=== PATIENT | female | born 1950 | race Caucasian/White ===

== ENCOUNTER 2018-02-22 03:28 | Observation (INO) ==
[2018-02-22] MEDS ORDERED: Ipratropium/Albuterol Neb 3 ML IH ONE (03:45)
[2018-02-22] MEDS ORDERED: methylPREDNISolone 125 MG/2 ML VIAL IVP ONE (03:45)
--- NOTE | 2018-02-22 03:50 | Emergency Department Note ---
Disposition Clinical Impression: Acute exacerbation of chronic obstructive airways disease Community acquired pneumonia Qualifiers: Laterality: left Lung location: unspecified part of lung Qualified Code(s): J18.9 - Pneumonia, unspecified organism Disposition: Admitted As Inpatient Condition: Good Referrals: Jani Pelletier DO [Primary Care Provider] - Forms: ED Satisfaction Letter Time of Disposition: 04:33 SOB HPI - General Chief Complaint: ED Shortness of Breath/Dyspnea Stated Complaint: Breathing problem Time Seen by Provider: 02/22/18 03:35 Source: patient, EMS Mode of arrival: EMS Limitations: no limitations Nursing Notes Reviewed: Yes Vital Signs Reviewed: Yes - History of Present Illness 67-year-old female history of COPD on 3 to 4 L home oxygen supplementation presents to the emergency department via EMS for difficulty breathing. She states over the past 24 hours she has progressively been more short of breath having a hard time breathing. She states around 830 Friday morning she began experiencing a sharp pain in the mid back. Scribes as a stabbing pain. She denies any chest pain. She is complaining of having a hard time breathing because of the discomfort. This is been ongoing throughout the day she is place ice packs as well as taken her [place] and Flexeril to help with it with minimal relief. With the difficulty breathing she had 3 breathing treatments in the morning and 3 breathing treatments tonight prior to coming here. She received additional breathing treatment by EMS which she reports with improvement. She denies any fevers. She has a nonproductive cough. She continues to smoke. Diagnosed with COPD 2009. She does not see a program instructor. She denies any abdominal pain, nausea or vomiting. She denies any urinary incontinence. Denies any leg swelling. She states she has not been on any antibiotics her steroids recently. Pt Subjective Complaint: shortness of breath - Related Data Home Medications Medication Instructions Recorded Confirmed Albuterol Sulfate [Ventolin Hfa] 2 puff IH Q4H PRN 12/18/17 12/18/17 Amitriptyline [Elavil] 10 mg PO HS 12/18/17 12/18/17 Aspirin [Lo-Dose Aspirin EC] 81 mg PO DAILY 12/18/17 12/18/17 Cyclobenzaprine [Flexeril] 10 mg PO TID 12/18/17 12/18/17 Fluticasone Propionate Nasal 2 spr NS DAILY 12/18/17 12/18/17 [Flonase] Fluticasone/Salmeterol [Advair 1 puff IH BID 12/18/17 12/18/17 500-50 Diskus] HYDROcodone/Acet 5/325 mg [[place] 1 tab PO Q6H PRN 12/18/17 12/18/17 5-325 mg] Tiotropium [Spiriva] 1 puff IH DAILY 12/18/17 12/18/17 Previous Rx's Medication Instructions Recorded Albuterol Sulfate [Albuterol 2 puff IH Q4HR PRN #1 hfa.aer.ad 12/18/17 Inhaler] Doxycycline 100 mg PO BID 5 Days #10 capsule 12/18/17 predniSONE [PredniSONE] 40 mg PO DAILY 4 Days #8 tablet 12/18/17 Allergies Allergy/AdvReac Type Severity Reaction Status Date / Time No Known Allergies Allergy Verified 12/18/17 12:10 All systems ED: reviewed and negative except as stated. Review of Systems: As Per HPI Constitutional: Denies: fever, chills ENT ED: Denies: congestion Cardiovascular: Denies: chest pain Respiratory: Reports: cough, dyspnea, wheezes Gastrointestinal: Denies: abdominal pain, nausea, vomiting Genitourinary: Denies: dysuria Musculoskeletal: Denies: back pain, neck pain Integumentary: Denies: rash Neurological: Denies: headache Past Medical History - Past Medical History Attestation: Yes The following information was validated with the patient. Source: patient Medical history: Reports: COPD Psychiatric history: Reports: no psych history - Social History Smoking Status: Current every day smoker Smokeless Tobacco Status: No Alcohol use: Reports: none Drug use: Reports: none Physical Exam - General Limitations: no limitations General appearance: alert, in no apparent distress, in distress (Mild respiratory) - Head Head exam: atraumatic, normocephalic, normal inspection - Eye Eye exam: Present: normal appearance, PERRL, EOMI - ENT ENT exam: normal exam, normal oropharynx, mucous membranes moist - Neck Neck exam: Present: normal inspection, full ROM, trachea midline - Chest Chest inspection: Present: normal inspection, symmetric chest wall rise - Respiratory Respiratory exam: Present: respiratory distress (Mild), wheezes, accessory muscle use, prolonged expiratory phase, other (Tight aeration) - Expanded Respiratory Exam Location: wheezes: Right, Left - Cardiovascular Cardiovascular exam: Present: normal rhythm, tachycardia, normal heart sounds - Abdominal Exam Abdominal exam: Present: soft, Non-Tender, normal bowel sounds. Absent: tenderness, distention, guarding, rebound, rigidity - Extremities Exam Extremities exam: Present: normal inspection, full ROM, normal capillary refill. Absent: tenderness, pedal edema, calf tenderness - Back Exam Back exam: Present: normal inspection, full ROM, paraspinal tenderness (mid thoracic). Absent: tenderness - Neurological Exam Neurological exam: Present: alert, oriented X3 - Psychiatric Psychiatric exam: Present: normal affect, normal mood - Skin Skin exam: Present: warm, dry, intact, normal color. Absent: rash, cyanosis, diaphoresis Course Course Narrative: Patient appears in some mild respiratory distress. She has a prolonged expiratory phase with diffuse wheezing and tight aeration. She is currently on her home oxygen supplementation of 3 L. She denies any chest pain by has some mild mid back pain worse with expiration. She denies history of blood clots. She is tachycardic likely due to her breathing treatments. She is afebrile. Will treat her for COPD exacerbation with breathing treatments and steroids. Check EKG and basic labs. Chest x-ray. Patients in agreement this plan. Will reevaluate. - Reevaluation(s) Reevaluation #1: On reevaluation patient continues to have some increase worker breathing. She continues her appetite aeration with diffuse wheezing. Review for labs leukocytosis of 17. Her CO2 is elevated at 40. Creatinine is fine. Chest x- ray shows concern for left upper lobe atelectasis versus pneumonia. Given her coughing increase difficulty in breathing will treat her for community acquired pneumonia with ceftriaxone and azithromycin on top for COPD exacerbation. Will add a lactate as well as blood cultures prior to administration of antibiotics. Will also trial a BiPAP to help with her breathing. Patients in agreement with admission for COPD exacerbation and community acquired pneumonia. Time: 04:34 Reevaluation #2: Patient is tolerating BiPAP. Her work of breathing is improving. Would recommend continuing the BiPAP. Current settings 14/7. Pulling good tidal volumes. She continues to mentate well she is conversant and talking over the BiPAP. Recommendation for BiPAP to assist with work of breathing. Time: 04:45 - Consultations Consultation #1: Spoke with on-call hospitalist maxine Ruiz to admit for COPD exac and CAP. Request to infuse magnesium to assist with breathing. 2g IV ordered. Time: 05:09 Vital Signs Temperature 97.1 F L 02/22/18 03:30 Pulse Rate 114 02/22/18 03:30 Respiratory Rate 22 02/22/18 03:30 Blood Pressure 113/87 02/22/18 03:30 O2 Sat by Pulse Oximetry 94 02/22/18 03:30 Temperature 97.1 F L 02/22/18 03:30 Pulse Rate 107 02/22/18 04:54 Respiratory Rate 24 02/22/18 04:54 Blood Pressure 113/61 02/22/18 04:54 O2 Sat by Pulse Oximetry 98 02/22/18 04:54 Oxygen Delivery Oxygen Delivery Bipap Shortness of Breath/Dyspnea - MDM Narrative Medical decision making narrative: Patient was discussed with my attending physician who agrees with ED management and final disposition. They independently evaluated the patient. Please refer to their attestation to this encounter for additional information. This note was generated by [employer] voice recognition software and as a result grammatical or spelling errors may occur using this program. - Medical Records Medical records reviewed: Yes I reviewed the patient's medical records. - Lab Data Lab results reviewed: Yes I reviewed the patient's lab results. Result diagrams: 02/22/18 03:45 02/22/18 03:45 Lab Results 02/22/18 02/22/18 Range/Units 03:45 03:45 WBC 17.7 H (4.3-11.1) K/mcL RBC 4.40 (3.82-4.97) M/mcL Hgb 13.4 (11.5-15.4) g/dL Hct 43.2 (35.3-44.9) % MCV 98.2 (83.0-100.0) fL MCH 30.5 (28.0-33.3) pg MCHC 31.0 L (31.6-35.5) g/dL RDW 11.5 (11.5-14.5) % Plt Count 274 (140-400) K/mcL MPV 9.6 (9.4-12.4) fL Immature Gran % 0.9 (0-4) % Seg Neutrophils % 81.5 % Lymphocytes % 8.0 % Monocytes % 8.6 % Eosinophils % 0.6 % Basophils % 0.4 % Neutrophils # 14.4 H (1.6-8.9) K/mcL Lymphocytes # 1.4 (0.6-4.6) K/mcL Monocytes # 1.5 H (0.0-1.3) K/mcL Eosinophils # 0.1 (0.0-0.6) K/mcL Basophils # 0.1 (0.0-0.2) K/mcL Sodium 139 (136-145) mEq/L Potassium 4.8 (3.5-5.1) mEq/L Chloride 95 L (98-107) mEq/L Carbon Dioxide 40 H* (23-29) mEq/L BUN 15 (8-23) mg/dL Creatinine 0.52 L (0.60-1.20) mg/dL Est GFR ( Amer) > 60 (> 60) Est GFR (Non-Af Amer) > 60 (> 60) BUN/Creatinine Ratio 29 H (6-26) Glucose 134 H (70-105) mg/dL Calculated Osmolality 291 (280-300) Calcium 9.5 (8.6-10.3) mg/dL - Radiology Data Radiology results reviewed: Yes I reviewed the patient's radiology results. Chest X-Ray 02/22/18 03:45 IMPRESSION: Left upper lobe and bibasilar atelectasis and/or pneumonia. D/ / Jesse Patel MD / Jesse Patel MD Interpreting Provider: Jesse Patel MD - EKG Data EKG attestation: Yes I reviewed and interpreted this EKG. EKG results narrative: EKG performed 0336 sinus tachycardia 118 beats per minute, normal axis, poor R wave progression, no ST elevation or depression, no T-wave version. Compared to prior EKG performed 12/18/2017 shows similar consistent findings of sinus tachycardia 10 2 bpm with similar consistent findings. No acute ischemic changes.
[2018-02-22 03:56] LABS: Basophils # 0.1 K/mcL (0.0-0.2); Basophils % 0.4 %; Eosinophils # 0.1 K/mcL (0.0-0.6); Eosinophils % 0.6 %; Hematocrit 43.2 % (35.3-44.9); Hemoglobin 13.4 g/dL (11.5-15.4); Immature Granulocytes % 0.9 % (0-4); Lymphocytes # 1.4 K/mcL (0.6-4.6); Mean Corpuscular Hemoglobin 30.5 pg (28.0-33.3); Mean Corpuscular Volume 98.2 fL (83.0-100.0); Mean Platelet Volume 9.6 fL (9.4-12.4); Monocytes # 1.5 K/mcL (0.0-1.3); Monocytes % 8.6 %; Neutrophils # 14.4 K/mcL (1.6-8.9); Platelet Count 274 K/mcL (140-400); Red Cell Distribution Width 11.5 % (11.5-14.5); Segmented Neutrophils % 81.5 %
[2018-02-22 04:06] LABS: BUN/Creatinine Ratio 29 (6-26); Blood Urea Nitrogen 15 mg/dL (8-23); Calcium 9.5 mg/dL (8.6-10.3); Carbon Dioxide 40 mEq/L (23-29); Chloride 95 mEq/L (98-107); Glucose 134 mg/dL (70-105); Osmolality,Calculated 291 (280-300); Potassium 4.8 mEq/L (3.5-5.1); Sodium 139 mEq/L (136-145); eGFR For African Americans > 60 (> 60); eGFR For Non-African Americans > 60 (> 60)
[2018-02-22] MEDS ORDERED: cefTRIAXone 1,000 MG in Water for inj. (sterile) 20 ML 10 ML IVP ONE (04:25)
[2018-02-22] MEDS ORDERED: Azithromycin 500 MG in D5% in Water 250 ML IVPB ONE (04:25)
--- NOTE | 2018-02-22 04:50 | Emergency Department Note ---
Disposition Clinical Impression: Acute exacerbation of chronic obstructive airways disease Community acquired pneumonia Qualifiers: Laterality: left Lung location: unspecified part of lung Qualified Code(s): J18.9 - Pneumonia, unspecified organism Disposition: Admitted As Inpatient Condition: Good Referrals: Jani Pelletier DO [Primary Care Provider] - Forms: ED Satisfaction Letter General Adult HPI - General Chief complaint: ED Shortness of Breath/Dyspnea Stated complaint: Breathing problem Time Seen by Provider: 02/22/18 03:35 Source: patient, EMS Mode of arrival: EMS Limitations: no limitations Nursing Notes Reviewed: Yes Vital Signs Reviewed: Yes - History of Present Illness Pain Scale: 7 - Related Data Home Medications Medication Instructions Recorded Confirmed Albuterol Sulfate [Ventolin Hfa] 2 puff IH Q4H PRN 12/18/17 12/18/17 Amitriptyline [Elavil] 10 mg PO HS 12/18/17 12/18/17 Aspirin [Lo-Dose Aspirin EC] 81 mg PO DAILY 12/18/17 12/18/17 Cyclobenzaprine [Flexeril] 10 mg PO TID 12/18/17 12/18/17 Fluticasone Propionate Nasal 2 spr NS DAILY 12/18/17 12/18/17 [Flonase] Fluticasone/Salmeterol [Advair 1 puff IH BID 12/18/17 12/18/17 500-50 Diskus] HYDROcodone/Acet 5/325 mg [[place] 1 tab PO Q6H PRN 12/18/17 12/18/17 5-325 mg] Tiotropium [Spiriva] 1 puff IH DAILY 12/18/17 12/18/17 Previous Rx's Medication Instructions Recorded Albuterol Sulfate [Albuterol 2 puff IH Q4HR PRN #1 hfa.aer.ad 12/18/17 Inhaler] Doxycycline 100 mg PO BID 5 Days #10 capsule 12/18/17 predniSONE [PredniSONE] 40 mg PO DAILY 4 Days #8 tablet 12/18/17 Allergies Allergy/AdvReac Type Severity Reaction Status Date / Time No Known Allergies Allergy Verified 12/18/17 12:10 Constitutional: Denies: fever, chills ENT ED: Denies: congestion Cardiovascular: Denies: chest pain Respiratory: Reports: cough, dyspnea, wheezes Gastrointestinal: Denies: abdominal pain, nausea, vomiting Genitourinary: Denies: dysuria Musculoskeletal: Denies: back pain, neck pain Integumentary: Denies: rash Neurological: Denies: headache Past Medical History - Past Medical History Medical history: Reports: COPD Psychiatric history: Reports: no psych history - Social History Smoking Status: Current every day smoker Smokeless Tobacco Status: No Alcohol use: Reports: none Drug use: Reports: none Physical Exam - General Limitations: no limitations General appearance: alert, in no apparent distress, in distress (Mild respiratory) Course Vital Signs Temperature 97.1 F L 02/22/18 03:30 Pulse Rate 114 02/22/18 03:30 Respiratory Rate 22 02/22/18 03:30 Blood Pressure 113/87 02/22/18 03:30 O2 Sat by Pulse Oximetry 94 02/22/18 03:30 Temperature 97.1 F L 02/22/18 03:30 Pulse Rate 112 02/22/18 04:19 Respiratory Rate 20 02/22/18 04:39 Blood Pressure 113/61 02/22/18 04:39 O2 Sat by Pulse Oximetry 97 02/22/18 04:39 Oxygen Delivery Oxygen Delivery Nasal Cannula Medical Decision Making - Lab Data Result diagrams: 02/22/18 03:45 02/22/18 03:45 Lab Results 02/22/18 02/22/18 Range/Units 03:45 03:45 WBC 17.7 H (4.3-11.1) K/mcL RBC 4.40 (3.82-4.97) M/mcL Hgb 13.4 (11.5-15.4) g/dL Hct 43.2 (35.3-44.9) % MCV 98.2 (83.0-100.0) fL MCH 30.5 (28.0-33.3) pg MCHC 31.0 L (31.6-35.5) g/dL RDW 11.5 (11.5-14.5) % Plt Count 274 (140-400) K/mcL MPV 9.6 (9.4-12.4) fL Immature Gran % 0.9 (0-4) % Seg Neutrophils % 81.5 % Lymphocytes % 8.0 % Monocytes % 8.6 % Eosinophils % 0.6 % Basophils % 0.4 % Neutrophils # 14.4 H (1.6-8.9) K/mcL Lymphocytes # 1.4 (0.6-4.6) K/mcL Monocytes # 1.5 H (0.0-1.3) K/mcL Eosinophils # 0.1 (0.0-0.6) K/mcL Basophils # 0.1 (0.0-0.2) K/mcL Sodium 139 (136-145) mEq/L Potassium 4.8 (3.5-5.1) mEq/L Chloride 95 L (98-107) mEq/L Carbon Dioxide 40 H* (23-29) mEq/L BUN 15 (8-23) mg/dL Creatinine 0.52 L (0.60-1.20) mg/dL Est GFR ( Amer) > 60 (> 60) Est GFR (Non-Af Amer) > 60 (> 60) BUN/Creatinine Ratio 29 H (6-26) Glucose 134 H (70-105) mg/dL Calculated Osmolality 291 (280-300) Calcium 9.5 (8.6-10.3) mg/dL Critical Care Time Critical Care Time: Yes Total Critical Care Time: 40 Attestation: Critical care performed: Time is exclusive of separately billable procedures. Time includes: direct patient care, patient reassessment, coordination of patient care, interpretation of data (laboratory data, radiology data, and respiratory data), review of patient's medical records, medical consultation and documentation of patient care. Procedures included in critical care time: Procedures excluded from critical care time: Attestation Statement - Attestation Attestation: IAmandeep MD, personally evaluated this patient and discussed their management with the resident physician. I reviewed the resident's note and agree with the documented findings, medical decision making, and plan of care. 67-year-old female with history of COPD who is on home oxygen presents to the emergency department by ambulance with a complaint of increased shortness of breath for 1 day prior to arrival. She complains of sharp stabbing pleuritic pain in her lower lungs bilaterally with coughing or deep breathing. There has been increased cough with no significant sputum production. No fever. On examination patient is a well-developed thin elderly female in mild respiratory distress. She is alert and oriented 3. There is no cyanosis or diaphoresis. Chest is nontender to palpation. Breath sounds are markedly decreased bilaterally with scattered inspiratory and expiratory wheezes. Heart tachycardic and regular. Abdomen soft and nontender with normal bowel sounds. No pedal edema. Labs reviewed. WBC 17.2. CO2 40. EKG shows a sinus tachycardia with ventricular rate of 118. No acute ST segment elevation or depression. No significant change from prior EKG. Chest x-ray shows: Left upper lobe and bibasilar atelectasis and/or pneumonia. Patient received triple DuoNeb treatment and IV Solu-Medrol. After the treatment she continues to have markedly decreased breath sounds with some scattered wheezes. She was placed on BiPAP. Patient started on IV Rocephin and Zithromax. The hospitalist, Dr. Sanchez, was consulted and accepted admission of the patient.
[2018-02-22] MEDS ORDERED: Magnesium Sulfate 20 gm/500mL 20 GM/500 ML IV.SOLN IVC SCH (05:15)
--- NOTE | 2018-02-22 08:13 | Internal Med History&Physical ---
Date of Encounter: 02/22/18 Time of Encounter: 08:00 Internal Medicine - H&P: HPI Chief complaint: Shortness of breath Admitted From: Home Plans for Post Hospital Care: Home History of present illness: Patient is a 67-year-old female with past medical history significant for O2 dependent COPD (3-4L nasal cannula) who presents to the ER on 02/22/18 due to shortness of breath. Patient is a poor historian but reports a recent onset of dyspnea on exertion and pleuritic back pain. In addition, she also reports of cough. Patient was concerned that she had pneumonia so decided to come into the ER for evaluation. In the ER, patient was found to have leukocytosis (WBC 17.7) and chest x-ray showed left upper lobe and bibasilar atelectasis and/or pneumonia. Patient will be admitted to medical surgical floor for treatment of COPD exacerbation secondary to community acquired pneumonia. Past Med Surg Social Fam HX - Past Medical History Medical history: COPD Psychiatric history: no psych history - Past Surgical History Surgical History: non-contributory - Social History Smoking Status: Current every day smoker Packs per day: 1 Smokeless Tobacco Status: No Alcohol use: none Drug use: none - Family History Father Living Status: Hx Family Cancer: Yes (prostate) Mother Living Status: Hx Family Cancer: Yes (throat) Internal Medicine - H&P: Meds Albuterol Sulfate [Albuterol Inhaler] 2 puff IH Q4HR PRN #1 hfa.aer.ad 12/18/17 [Rx] Albuterol Sulfate [Ventolin Hfa] 2 puff IH Q4H PRN 12/18/17 [History] Amitriptyline [Elavil] 10 mg PO HS 12/18/17 [History] Aspirin [Lo-Dose Aspirin EC] 81 mg PO DAILY 12/18/17 [History] Cyclobenzaprine [Flexeril] 10 mg PO TID 12/18/17 [History] Doxycycline 100 mg PO BID 5 Days #10 capsule 12/18/17 [Rx] Fluticasone Propionate Nasal [Flonase] 2 spr NS DAILY 12/18/17 [History] Fluticasone/Salmeterol [Advair 500-50 Diskus] 1 puff IH BID 12/18/17 [History] HYDROcodone/Acet 5/325 mg [[place] 5-325 mg] 1 tab PO Q6H PRN 12/18/17 [History] Tiotropium [Spiriva] 1 puff IH DAILY 12/18/17 [History] predniSONE [PredniSONE] 40 mg PO DAILY 4 Days #8 tablet 12/18/17 [Rx] 3 Allergy/AdvReac Type Severity Reaction Status Date / Time No Known Allergies Allergy Verified 12/18/17 12:10 All Systems PM: A 10-system review of systems was performed and is negative for pertinent findings except as documented above in the HPI. - Constitutional Vitals: Temp Pulse Resp BP Pulse Ox 98 F 102 16 125/92 92 02/22/18 07:17 02/22/18 07:17 02/22/18 07:17 02/22/18 07:17 02/22/18 07:17 General appearance: Present: A&O X 3, no acute distress - Eye Eye exam: Present: normal appearance - ENT ENT exam: Present: mucous membranes dry - Respiratory Respiratory exam: Present: decreased breath sounds, wheezes. Absent: accessory muscle use, prolonged expiratory phase, rales, respiratory distress, rhonchi, tachypnea - Cardiovascular Cardiovascular exam: Present: RRR, +S1, +S2. Absent: diastolic murmur, gallop, rubs, systolic murmur - GI/Abdominal GI/Abdominal exam: Present: normal bowel sounds, soft, no peritoneal signs. Absent: distended, tenderness - Extremities Exam Extremities exam: Absent: pedal edema - Back Exam Back exam: Absent: paraspinal tenderness, tenderness, vertebral tenderness - Neurological Exam Neurological exam: Present: oriented X3 - Psychiatric Psychiatric exam: Present: normal mood - Skin Skin exam: Present: normal color Internal Med - H&P Results - Labs CBC & Chem 7: 02/22/18 03:45 02/22/18 03:45 - Assessment and plan (1) Acute on chronic respiratory failure with hypoxia and hypercapnia Current Visit: Yes Status: Acute Assessment and plan: Patient with labored breathing early exam but has now resolved Patient with minimal airflow movement on exam and diffuse expiratory wheezes ABG showed pH of 7.34, PCO2 73 and PO2 56 Patient refuses to wear BiPAP Discussed with patient the risk of not using BiPAP as she may need to be intubated and she verbalized understanding Continue to monitor (2) Community acquired pneumonia Current Visit: Yes Status: Acute Assessment and plan: In the ER, patient was found to have leukocytosis (WBC 17.7) and chest x-ray showed left upper lobe and bibasilar atelectasis and/or pneumonia. Will continue IV azithromycin and ceftriaxone started in the ER Qualifiers: Laterality: left Lung location: unspecified part of lung Qualified Code(s ): J18.9 - Pneumonia, unspecified organism (3) Acute exacerbation of chronic obstructive airways disease Current Visit: Yes Status: Acute Assessment and plan: Patient with diffuse expiratory wheezes on exam Will continue duo nebs and Solu-Medrol (4) DVT prophylaxis Current Visit: Yes Status: Acute Assessment and plan: Subcutaneous heparin - Time Spent With Patient Total time spent is greater than 50% in coordination of care (as documented) at patient's floor/unit and/or counseling patient:
[2018-02-22 08:20] LABS: ABG Base Excess 10 mEq/L (-2 to 3); ABG HCO3 39 mEq/L (21-27); ABG Oxygen Saturation 85 % (95-98); ABG PCO2 73 mmHg (35-45); ABG PH 7.34 pH Units (7.32-7.45); ABG PO2 56 mmHg (85-104); ABG TCO2 41 mEq/L (20-26)
[2018-02-22] MEDS ORDERED: Naloxone 0.4 MG/ML INJ IVP PRN (08:39)
[2018-02-22] MEDS: Azithromycin 500 MG in D5% in Water 250 ML IVPB SCH (09:40)
[2018-02-22] MEDS: cefTRIAXone 1,000 MG in Water for inj. (sterile) 20 ML 10 ML IVP SCH (09:40)
[2018-02-22] MEDS: Ketorolac 30 MG/ML VIAL IVP PRN ×3 (09:46→23:17)
[2018-02-22] MEDS: Ipratropium/Albuterol Neb 3 ML IH SCH ×4 (11:04→23:29)
[2018-02-22] MEDS: Nicotine 21 MG PATCH.TD24 TD SCH (13:47)
[2018-02-22] MEDS: *HR* Heparin 5,000 UNIT/ML VIAL SQ SCH ×2 (13:47→22:14)
[2018-02-22] MEDS ORDERED: Menthol 9.1 MG LOZENGE PO PRN (16:53)
[2018-02-22] MEDS: methylPREDNISolone 125 MG/2 ML VIAL IVP SCH (16:55)
[2018-02-23] MEDS: methylPREDNISolone 125 MG/2 ML VIAL IVP SCH ×2 (00:38→08:27)
[2018-02-23] MEDS ORDERED: Melatonin 3 MG TABLET PO PRN (01:29)
[2018-02-23 03:12] LABS: Basophils % 0.2 %; Hematocrit 41.2 % (35.3-44.9); Hemoglobin 13.2 g/dL (11.5-15.4); Immature Granulocytes % 1.2 % (0-4); Lymphocytes # 0.6 K/mcL (0.6-4.6); Lymphocytes % 3.7 %; Mean Corpuscular Hemoglobin 30.3 pg (28.0-33.3); Mean Corpuscular Volume 94.5 fL (83.0-100.0); Mean Platelet Volume 9.6 fL (9.4-12.4); Monocytes # 0.5 K/mcL (0.0-1.3); Monocytes % 3.1 %; Neutrophils # 14.7 K/mcL (1.6-8.9); Platelet Count 258 K/mcL (140-400); Red Blood Count 4.36 M/mcL (3.82-4.97); Red Cell Distribution Width 11.4 % (11.5-14.5); Segmented Neutrophils % 91.8 %
[2018-02-23 03:30] LABS: BUN/Creatinine Ratio 39 (6-26); Blood Urea Nitrogen 27 mg/dL (8-23); Calcium 9.5 mg/dL (8.6-10.3); Carbon Dioxide 35 mEq/L (23-29); Chloride 94 mEq/L (98-107); Glucose 175 mg/dL (70-105); Osmolality,Calculated 293 (280-300); Potassium 3.8 mEq/L (3.5-5.1); Sodium 137 mEq/L (136-145); eGFR For African Americans > 60 (> 60); eGFR For Non-African Americans > 60 (> 60)
[2018-02-23] MEDS: Ipratropium/Albuterol Neb 3 ML IH SCH ×4 (04:36→15:57)
[2018-02-23] MEDS: *HR* Heparin 5,000 UNIT/ML VIAL SQ SCH (06:32)
[2018-02-23] MEDS: cefTRIAXone 1,000 MG in Water for inj. (sterile) 20 ML 10 ML IVP SCH (08:28)
[2018-02-23] MEDS: Azithromycin 500 MG in D5% in Water 250 ML IVPB SCH (08:31)
[2018-02-23] MEDS: Nicotine 21 MG PATCH.TD24 TD SCH (08:34)
[2018-02-23] MEDS ORDERED: 0.9 % Sodium Chloride 500 ML IVC ONE (10:26)
[2018-02-23] MEDS ORDERED: Aspirin Enteric Coated 81 MG Tablet PO SCH (14:00)
[2018-02-23] MEDS ORDERED: Fluticasone Propionate Nasal 50 MCG/SPRAY BOTTLE NS SCH (14:00)
--- NOTE | 2018-02-23 14:37 | Internal Med Progress Note ---
<Deangelo Davies - Last Filed: 02/23/18 14:50> Date of Encounter: 02/23/18 Time of Encounter: 09:20 - Assessment and plan (1) Acute on chronic respiratory failure with hypoxia and hypercapnia Current Visit: Yes Status: Acute Assessment and plan: Patient with labored breathing early exam but has now resolved Patient with minimal airflow movement on exam and diffuse expiratory wheezes ABG showed pH of 7.34, PCO2 73 and PO2 56 Patient refuses to wear BiPAP Discussed with patient the risk of not using BiPAP as she may need to be intubated and she verbalized understanding --Explained to the patient in length the difference between Oxygen and BiPAP. Explained to her that BiPAP is used to remove CO2 from the blood and she voiced understanding but continues to refuse BiPAP (2) Acute exacerbation of chronic obstructive airways disease Current Visit: Yes Status: Acute Assessment and plan: Patient with diffuse expiratory wheezes on exam Will continue duo nebs and Solu-Medrol (3) Community acquired pneumonia Current Visit: Yes Status: Acute Assessment and plan: CAP on CXR - showed left upper lobe and bibasilar atelectasis and/or pneumonia Patient is symptomatic, WBC 16.1, tachypneic, tachycardia Give 500mL bolus normal saline Continue antibiotics -Azithromycin Day 2 -Ceftriaxone Day 2 Qualifiers: Laterality: left Lung location: unspecified part of lung Qualified Code(s ): J18.9 - Pneumonia, unspecified organism (4) DVT prophylaxis Current Visit: Yes Status: Acute Assessment and plan: Subcutaneous heparin - Time Spent With Patient Total time spent is greater than 50% in coordination of care (as documented) at patient's floor/unit and/or counseling patient: - Subjective Interval history: The patient is seen and examined at bedside. She is highly agitated, and she says that she wants to leave. She says that she knows her body and knows when she needed medicine, and that right now she just wants to be sent home on steroids. She refused BiPAP overnight. - Constitutional Vitals: Temp Pulse Resp BP Pulse Ox 97.7 F 110 16 140/93 97 02/23/18 11:59 02/23/18 11:59 02/23/18 11:59 02/23/18 11:59 02/23/18 11:59 General appearance: Present: A&O X 3, no acute distress Exam: Gen.: Vitals noted. No acute distress. HEENT: oropharynx clear, Normocephalic, atraumatic Neck: Supple. No adenopathy. Cardiac: RRR, no murmur, +S1/S2 Pulmonary: Diffuse rhonchi, wheezes noted on exam. There are diminished sounds b /l Abdomen: soft, nontender, BS noted, no guarding MSK: ROM intact, no joint swelling noted Extremities: no BLE edema, nontender calf, no cyanosis or clubbing Neuro: A&Ox3, moves all extremities, no focal deficits Psych: Appropriate mood and behavior Internal Medicine: Result - Labs CBC & Chem 7: 02/23/18 02:50 02/23/18 02:50 Labs: Short CBC 02/23/18 Range/Units 02:50 WBC 16.1 H (4.3-11.1) K/mcL Hgb 13.2 (11.5-15.4) g/dL Hct 41.2 (35.3-44.9) % Plt Count 258 (140-400) K/mcL Neutrophils # 14.7 H (1.6-8.9) K/mcL BMP 02/23/18 02:50 Sodium 137 Potassium 3.8 Chloride 94 L Carbon Dioxide 35 H BUN 27 H Creatinine 0.70 Glucose 175 H Calcium 9.5 - ABG Interpretation ABG results: ABG ABG pH 7.34 pH Units (7.32-7.45) 02/22/18 08:08 ABG pCO2 73 mmHg (35-45) H* 02/22/18 08:08 ABG pO2 56 mmHg (85-104) L 02/22/18 08:08 ABG O2 Saturation 85 % (95-98) L 02/22/18 08:08 Consult Discharge Plan - Plan Referrals: Jani Pelletier DO [Primary Care Provider] - 03/03/18 1:30 pm <Jeet Maddox - Last Filed: 02/23/18 15:32> Date of Encounter: 02/23/18 - Assessment and plan (1) Acute exacerbation of chronic obstructive airways disease Current Visit: Yes Status: Acute (2) Community acquired pneumonia Current Visit: Yes Status: Acute Qualifiers: Laterality: left Lung location: unspecified part of lung Qualified Code(s ): J18.9 - Pneumonia, unspecified organism (3) Acute on chronic respiratory failure with hypoxia and hypercapnia Current Visit: Yes Status: Acute (4) DVT prophylaxis Current Visit: Yes Status: Acute - Time Spent With Patient Total time spent is greater than 50% in coordination of care (as documented) at patient's floor/unit and/or counseling patient: - Constitutional Vitals: Temp Pulse Resp BP Pulse Ox 97.7 F 110 16 140/93 97 02/23/18 11:59 02/23/18 11:59 02/23/18 11:59 02/23/18 11:59 02/23/18 11:59 Internal Medicine: Result - Labs CBC & Chem 7: 02/23/18 02:50 02/23/18 02:50 Labs: Short CBC 02/23/18 Range/Units 02:50 WBC 16.1 H (4.3-11.1) K/mcL Hgb 13.2 (11.5-15.4) g/dL Hct 41.2 (35.3-44.9) % Plt Count 258 (140-400) K/mcL Neutrophils # 14.7 H (1.6-8.9) K/mcL BMP 02/23/18 02:50 Sodium 137 Potassium 3.8 Chloride 94 L Carbon Dioxide 35 H BUN 27 H Creatinine 0.70 Glucose 175 H Calcium 9.5 - ABG Interpretation ABG results: ABG ABG pH 7.34 pH Units (7.32-7.45) 02/22/18 08:08 ABG pCO2 73 mmHg (35-45) H* 02/22/18 08:08 ABG pO2 56 mmHg (85-104) L 02/22/18 08:08 ABG O2 Saturation 85 % (95-98) L 02/22/18 08:08 - Attending Attestation I examined this patient and my medical decision-making was reviewed with the Resident Physician on 02/23/18. I agree with the documented findings, disposition and treatment plan as described except to the extent set forth below. Acute on Chronic Hypoxic and Hypercapneic respiratory failure, Community acquired PNA, COPDE, Tobacco abuse. She is refusing to be tested for or use her BIPAP, she understands the consequences of not using BiPAP. Tachycardia is sinus. GIve IVF, continue current mgt. Rest of details as in the resident physician's documentation
--- NOTE | 2018-02-23 15:58 | Discharge Summary ---
<Deangelo Davies - Last Filed: 02/23/18 15:54> - NOTES TO OUTPATIENT PROVIDER Notes to Outpatient Provider: The patient presented with COPD exacerbation, CAP and Respiratory failure with hypoxia and hypercapnia. Refused BiPAP, signed out AMA Day two. Sent on Levaquin x 6 days, long taper prednisone. She is told to follow up in no more than 3 days. Date of Encounter: 02/23/18 Time of Encounter: 15:54 - Discharge Diagnosis (1) Acute exacerbation of chronic obstructive airways disease Priority: Secondary Status: Acute Assessment and Plan: Continue long taper of prednisone Levaquin PO x 6d (2) Community acquired pneumonia Priority: Secondary Status: Acute Assessment and Plan: CAP on CXR - showed left upper lobe and bibasilar atelectasis and/or pneumonia Patient is symptomatic, WBC 16.1, tachypneic, tachycardia Patient signed out AMA, continued PO Levaquin on discharge Will require prompt follow-up Qualifiers: Laterality: left Lung location: unspecified part of lung Qualified Code(s ): J18.9 - Pneumonia, unspecified organism (3) Acute on chronic respiratory failure with hypoxia and hypercapnia Priority: Primary Status: Acute Assessment and Plan: Patient with labored breathing early exam but has now resolved Patient with minimal airflow movement on exam and diffuse expiratory wheezes ABG showed pH of 7.34, PCO2 73 and PO2 56 Patient refuses to wear BiPAP Discussed with patient the risk of not using BiPAP as she may need to be intubated and she verbalized understanding --Explained to the patient in length the difference between Oxygen and BiPAP. Explained to her that BiPAP is used to remove CO2 from the blood and she voiced understanding but continues to refuse BiPAP She will likely require BiPAP at home eventually, however she signed out AMA prior to being evaluated. Hospital course: Ms. Alejandre is a 67 year old female with history of severe COPD who was admitted to [facility] with acute respiratory failure with hypoxia and hypercapnia. She is on chronic O2 at home, but has had worsening cough and SOB. On arrival she was found to have JARROD PNA with severe exacerbation of COPD with pCO2 of 76 which was responsive to BiPAP. It appears that the patient may have met sepsis criteria at the time of admission. Over the course of her stay, the patient was treated with IV antibiotics, steroids, and BiPAP which she quickly started to refuse. Today, despite still showing signs of severe infection including hypoxia, tachycardia and leukocytosis, the patient determined that she no longer needed to stay. She repeatedly stated that she knows her body, and that she can tell she is fine and does not need to stay. She was strongly advised to stay as she is not currently stable for discharge, however she signed out AMA. I did fill antibiotic and steroid prescriptions for her, and advised her of Red Flag symptoms for which she should come back and be seen if they are to arrive. Discharge discussed with: patient, nurse Time spent discussing smoking cessation with patient: more than 10 minutes - Time Spent with Patient Total time spent providing and/or coordinating discharge services: Greater than 30 minutes - Discharge Medications Prescriptions: levoFLOXacin [Levaquin] 750 mg PO DAILY #6 tablet predniSONE [PredniSONE] 10 mg PO DAILY #75 tablet Home Medications: Albuterol Sulfate [Ventolin Hfa] 2 puff IH Q4H PRN 12/18/17 [History] Amitriptyline [Elavil] 10 mg PO HS 12/18/17 [History] Aspirin [Lo-Dose Aspirin EC] 81 mg PO DAILY 12/18/17 [History] Cyclobenzaprine [Flexeril] 10 mg PO TID 12/18/17 [History] Fluticasone Propionate Nasal [Flonase] 2 spr NS DAILY 12/18/17 [History] Fluticasone/Salmeterol [Advair 500-50 Diskus] 1 puff IH BID 12/18/17 [History] HYDROcodone/Acet 5/325 mg [[place] 5-325 mg] 1 tab PO Q6H PRN 12/18/17 [History] Tiotropium [Spiriva] 1 puff IH DAILY 12/18/17 [History] Oxygen 3 - 4 l NS DAILY 02/22/18 [History] Ipratropium/Albuterol Neb [Duoneb] 3 ml IH [id number] inhsol 02/23/18 [Rx] levoFLOXacin [Levaquin] 750 mg PO DAILY #6 tablet 02/23/18 [Rx] predniSONE [PredniSONE] 10 mg PO DAILY #75 tablet 02/23/18 [Rx] Allergies/Adverse Reactions: 3 Allergy/AdvReac Type Severity Reaction Status Date / Time No Known Allergies Allergy Verified 02/22/18 11:53 Date of admission: 02/22/18 05:13 Primary care physician: Pavan Duffy Discharging clinician: Deangelo Byrnes date of discharge: 02/23/18 - Constitutional Vitals: Temp Pulse Resp BP Pulse Ox 97.7 F 110 16 140/93 97 02/23/18 11:59 02/23/18 11:59 02/23/18 11:59 02/23/18 11:59 02/23/18 11:59 General appearance: Present: A&O X 3, no acute distress Exam: Gen: Vitals noted. No acute distress. HEENT: oropharynx clear, Normocephalic, atraumatic Neck: Supple. No adenopathy. Cardiac: RRR, no murmur, +S1/S2 Pulmonary: Diffuse rhonchi, wheezes noted on exam. There are diminished sounds b /l Abdomen: soft, nontender, BS noted, no guarding MSK: ROM intact, no joint swelling noted Extremities: no BLE edema, nontender calf, no cyanosis or clubbing Neuro: A&Ox3, moves all extremities, no focal deficits Psych: Appropriate mood and behavior - Patient Status Disposition: Left Against Medical Advice Condition: Serious Functional capacity at discharge: independent ambulation Overall status at discharge: patient is not back to baseline - Discharge Instructions Follow Up With: Jani Pelletier DO [Primary Care Provider] - 03/03/18 1:30 pm Additional Instructions: Follow-up with primary car in no more than 3 days Continue antibiotic and steroid as directed Return for SOB, worsened symptoms, changes in level of consciousness, confusion - Diet and Activity Activity: increase activity as tolerated, wear oxygen at all times Diet: low salt diet <Jeet Maddox - Last Filed: 02/23/18 16:29> Date of Encounter: 02/23/18 - Discharge Diagnosis (1) Acute exacerbation of chronic obstructive airways disease Status: Acute (2) Community acquired pneumonia Status: Acute Qualifiers: Laterality: left Lung location: unspecified part of lung Qualified Code(s ): J18.9 - Pneumonia, unspecified organism (3) Acute on chronic respiratory failure with hypoxia and hypercapnia Status: Acute Hospital course: Ms. Alejandre is a 67 year old female - Time Spent with Patient Total time spent providing and/or coordinating discharge services: Date of admission: 02/22/18 05:13 Primary care physician: Pavan Duffy - Constitutional Vitals: Temp Pulse Resp BP Pulse Ox 97.8 F 116 16 145/91 92 02/23/18 16:06 02/23/18 16:06 02/23/18 16:06 02/23/18 16:06 02/23/18 16:06 - Attending Attestation Agree with plan
[2018-02-23 16:09] VITALS: BP 145/91
--- NOTE | 2018-02-24 06:33 | Electrocardiograph Report ---
[address] [address] Test Date: 2018-02-22 Pat Name: Na Alejandre Department: 102 Room: [facility] Gender: F Sales Floor Manager: : 1950 Requested By: Kaden Oconnor Order Number: [id number] Reading MD: Gregg Dawson Measurements Intervals [place] Rate: 118 P: 81 MS: 183 QRS: 93 QRSD: 96 T: 73 QT: 327 QTc: 397 Interpretive Statements SINUS TACHYCARDIA RIGHT ATRIAL ENLARGEMENT INDETERMINATE AXIS Electronically Signed On 02-24-2018 6:31:57 EDT by Gregg Dawson
== END 2018-02-23 16:53 | disposition left against medical advice (07) ==
LOC: 2NENU 03:28 → EMEROO 03:28 → 2NENU 05:30
PROVIDERS: ADMIT Internal Medicine; ATTEND Internal Medicine

== ENCOUNTER 2018-09-28 14:39 | Inpatient (IN) ==
[2018-09-28] MEDS ORDERED: Ipratropium/Albuterol Neb 3 ML IH ONE ×2 (15:00→19:18)
[2018-09-28] MEDS ORDERED: methylPREDNISolone 125 MG/2 ML VIAL IVP ONE (15:00)
--- NOTE | 2018-09-28 15:03 | Emergency Department Note ---
Disposition Clinical Impression: Hypoxemia, COPD exacerbation, Pneumonia, Sepsis, Abnormal EKG Disposition: Admitted As Inpatient Referrals: NONE,PCP [Non-Partnered Physician] - Forms: ED Satisfaction Letter General Adult HPI - General Chief complaint: ED Shortness of Breath/Dyspnea Stated complaint: PAZ Time Seen by Provider: 09/28/18 14:54 Source: patient, EMS Limitations: no limitations - History of Present Illness HPI Narrative: 68-year-old female with history of COPD who wears 3 L nasal cannula on a concentrator reports emergency department via EMS with concerns for shortness of breath for the last 3 days. She describes sharp bilateral chest pain when coughing. No history of DVT PE or cancer leg swelling or pain coughing up blood or syncope. He has no history of cardiac disease no prior cardiac stents no history of aneurysm. There is no history of abdominal pain vomiting or diarrhea. No trauma. No troubles moving the arms or legs independently no slurred speech or unilateral arm or leg weakness or numbness she is not anticoagulated. No coughing up blood or high fevers. Per report the patient's oxygen saturations were low at the scene and they were unable to get her oxygen level above 90% on mask. On arrival to the emergency department the patient was persistently hypoxemic and were unable to get her oxygen saturations above 90 with a nasal cannula. Subsequently a nasal cannula was placed in the mouth and then subsequently a mask was placed the patient was able to oxygenate about 90%. Pain Scale: 0 - Related Data Home Medications Medication Instructions Recorded Confirmed Albuterol Sulfate [Ventolin Hfa] 2 puff IH Q4H PRN 12/18/17 02/22/18 Amitriptyline [Elavil] 10 mg PO HS 12/18/17 02/22/18 Aspirin [Lo-Dose Aspirin EC] 81 mg PO DAILY 12/18/17 02/22/18 Cyclobenzaprine [Flexeril] 10 mg PO TID 12/18/17 02/22/18 Fluticasone Propionate Nasal 2 spr NS DAILY 12/18/17 02/22/18 [Flonase] Fluticasone/Salmeterol [Advair 1 puff IH BID 12/18/17 02/22/18 500-50 Diskus] HYDROcodone/Acet 5/325 mg [[place] 1 tab PO Q6H PRN 12/18/17 02/22/18 5-325 mg] Tiotropium [Spiriva] 1 puff IH DAILY 12/18/17 02/22/18 Oxygen 3 - 4 l NS DAILY 02/22/18 02/22/18 Previous Rx's Medication Instructions Recorded Ipratropium/Albuterol Neb [Duoneb] 3 ml IH [id number] inhsol 02/23/18 Allergies Allergy/AdvReac Type Severity Reaction Status Date / Time No Known Allergies Allergy Verified 02/22/18 11:53 All systems ED: reviewed and negative except as stated. Past Medical History - Past Medical History Medical history: Reports: COPD Surgical history: Reports: non-contributory Psychiatric history: Reports: no psych history - Social History Smoking Status: Current every day smoker Smokeless Tobacco Status: No Alcohol use: Reports: none Drug use: Reports: none Physical Exam - General Limitations: no limitations General appearance: alert, in no apparent distress - Head Head exam: atraumatic, normocephalic, normal inspection - Eye Eye exam: Present: normal appearance, PERRL, EOMI - ENT ENT exam: normal exam, normal oropharynx, mucous membranes moist, TM's normal bilaterally, normal external ear exam - Neck Neck exam: Present: normal inspection, full ROM, trachea midline - Chest Chest inspection: Present: symmetric chest wall rise - Respiratory Respiratory exam: Present: wheezes, prolonged expiratory phase. Absent: respiratory distress - Cardiovascular Cardiovascular exam: Present: regular rate, normal rhythm, normal heart sounds - Abdominal Exam Abdominal exam: Present: soft, Non-Tender, normal bowel sounds. Absent: tenderness, distention, guarding, rebound, rigidity - Extremities Exam Extremities exam: Present: normal inspection, full ROM, normal capillary refill. Absent: tenderness, pedal edema, joint swelling, calf tenderness - Expanded Lower Extremity Exam Lower leg exam: Absent: Homans' sign Neurovascular/Tendon exam: Present: normal capillary refill. Absent: motor deficit, sensory deficit, tendon deficit, extremity cold to touch, pallor - Back Exam Back exam: Present: normal inspection, full ROM. Absent: tenderness, CVA tenderness (R), CVA tenderness (L), vertebral tenderness - Neurological Exam Neurological exam: Present: alert, oriented X3, CN II-XII intact, motor sensory deficit - Psychiatric Psychiatric exam: Present: normal affect, normal mood - Skin Skin exam: Present: warm, dry, intact, normal color. Absent: rash, cyanosis, diaphoresis, erythema, pallor, mottled Course Vital Signs Temperature 98.1 F 09/28/18 14:47 Pulse Rate 109 09/28/18 14:47 Respiratory Rate 17 09/28/18 14:47 Blood Pressure 108/65 09/28/18 14:47 O2 Sat by Pulse Oximetry 93 09/28/18 14:47 Temperature 98.1 F 09/28/18 14:47 Pulse Rate 85 09/28/18 19:07 Respiratory Rate 15 09/28/18 19:35 Blood Pressure 97/66 09/28/18 19:35 O2 Sat by Pulse Oximetry 100 09/28/18 19:35 Oxygen Delivery Oxygen Delivery Venti Mask Medical Decision Making - MDM Narrative Medical decision making narrative: The patient is elderly and has history of COPD usually require 3 L nasal cannula. In the Emergency Department her oxygen saturation was in the 80s and she required 5 L minimal. The patient was somewhat tachypnic on arrival given DuoNeb Solu-Medrol and monitored. EKG showed a sinus tachycardia. Laboratory studies show leukocytosis negative lactic acid negative troponin. The patient's chest x-ray suggestive of pneumonitis. BNP negative. She appears to be stable, based on her hypoxemia, increasing oxygen requirement, apparent sepsis, I thought it would be appropriate to admit the patient hospital. Antibiotics were initiated. IV fluid was given. The patient is currently stable. She is highly agreeable. I discussed case with the Hospitalist on-call who has accepted the patient to their care. I did review the EKG findings with Dr. Sandoval, radio time salesperson, some slight ST elevations in the anterior leads, he does not feel these meet criteria for acute coronary syndrome. The patient does not describe chest pain. Her troponin is negative. - Lab Data Lab results reviewed: Yes I reviewed the patient's lab results. Result diagrams: 09/28/18 15:01 09/28/18 15:01 Lab Results 09/28/18 09/28/18 09/28/18 Range/Units 15:01 15: 15:01 WBC 22.2 H (4.3-11.1) K/mcL RBC 4.08 (3.82-4.97) M/mcL Hgb 12.2 (11.5-15.4) g/dL Hct 39.6 (35.3-44.9) % MCV 97.1 (83.0-100.0) fL MCH 29.9 (28.0-33.3) pg MCHC 30.8 L (31.6-35.5) g/dL RDW 11.5 (11.5-14.5) % Plt Count 466 H (140-400) K/mcL MPV 9.6 (9.4-12.4) fL Immature Gran % 0.5 (0-4) % Seg Neutrophils % 90.1 % Lymphocytes % 3.2 % Monocytes % 5.9 % Eosinophils % 0.0 % Basophils % 0.3 % Neutrophils # 20.0 H (1.6-8.9) K/mcL Lymphocytes # 0.7 (0.6-4.6) K/mcL Monocytes # 1.3 (0.0-1.3) K/mcL Eosinophils # 0.0 (0.0-0.6) K/mcL Basophils # 0.1 (0.0-0.2) K/mcL PT (9.4-12.1) Seconds INR APTT (26.0-36.0) Seconds Sodium 134 L (136-145) mEq/L Potassium 4.4 (3.5-5.1) mEq/L Chloride 91 L (98-107) mEq/L Carbon Dioxide 33 H (23-29) mEq/L BUN 22 (8-23) mg/dL Creatinine 0.84 (0.60-1.20) mg/dL Est GFR ( Amer) > 60 (> 60) Est GFR (Non-Af Amer) > 60 (> 60) BUN/Creatinine Ratio 26 (6-26) Glucose 193 H (70-105) mg/dL Calculated Osmolality 287 (280-300) Lactic Acid 1.2 (0.5-2.2) mmol/L Calcium 9.1 (8.6-10.3) mg/dL Total Bilirubin 0.5 (0.3-1.0) mg/dL Direct Bilirubin 0.2 (0.0-0.2) mg/dL Indirect Bilirubin 0.3 (0.0-1.2) mg/dL AST 10 L (13-39) Units/L ALT 6 L (7-52) Units/L Alkaline Phosphatase 94 (34-104) Units/L Troponin I < 0.03 (< 0.04) ng/mL B-Natriuretic Peptide (Less than 100) pg/mL Serum Total Protein 6.4 (6.4-8.9) g/dL Albumin 3.2 L (3.5-5.7) g/dL Globulin 3.2 (2.4-3.5) g/dL Albumin/Globulin Ratio 1.0 L (1.1-2.2) 09/28/18 09/28/18 Range/Units 15:01 15:01 WBC (4.3-11.1) K/mcL RBC (3.82-4.97) M/mcL Hgb (11.5-15.4) g/dL Hct (35.3-44.9) % MCV (83.0-100.0) fL MCH (28.0-33.3) pg MCHC (31.6-35.5) g/dL RDW (11.5-14.5) % Plt Count (140-400) K/mcL MPV (9.4-12.4) fL Immature Gran % (0-4) % Seg Neutrophils % % Lymphocytes % % Monocytes % % Eosinophils % % Basophils % % Neutrophils # (1.6-8.9) K/mcL Lymphocytes # (0.6-4.6) K/mcL Monocytes # (0.0-1.3) K/mcL Eosinophils # (0.0-0.6) K/mcL Basophils # (0.0-0.2) K/mcL PT 15.6 H (9.4-12.1) Seconds INR 1.4 APTT 36.4 H (26.0-36.0) Seconds Sodium (136-145) mEq/L Potassium (3.5-5.1) mEq/L Chloride (98-107) mEq/L Carbon Dioxide (23-29) mEq/L BUN (8-23) mg/dL Creatinine (0.60-1.20) mg/dL Est GFR ( Amer) (> 60) Est GFR (Non-Af Amer) (> 60) BUN/Creatinine Ratio (6-26) Glucose (70-105) mg/dL Calculated Osmolality (280-300) Lactic Acid (0.5-2.2) mmol/L Calcium (8.6-10.3) mg/dL Total Bilirubin (0.3-1.0) mg/dL Direct Bilirubin (0.0-0.2) mg/dL Indirect Bilirubin (0.0-1.2) mg/dL AST (13-39) Units/L ALT (7-52) Units/L Alkaline Phosphatase (34-104) Units/L Troponin I (< 0.04) ng/mL B-Natriuretic Peptide 52 (Less than 100) pg/mL Serum Total Protein (6.4-8.9) g/dL Albumin (3.5-5.7) g/dL Globulin (2.4-3.5) g/dL Albumin/Globulin Ratio (1.1-2.2) - Radiology Data Radiology results reviewed: Yes I reviewed the patient's radiology results.
[2018-09-28 15:40] LABS: Troponin I < 0.03 ng/mL (< 0.04)
[2018-09-28 15:41] LABS: Alanine Aminotransferase 6 Units/L (7-52); Albumin 3.2 g/dL (3.5-5.7); Alkaline Phosphatase 94 Units/L (34-104); Aspartate Amino Transferase 10 Units/L (13-39); BUN/Creatinine Ratio 26 (6-26); Bilirubin,Direct 0.2 mg/dL (0.0-0.2); Bilirubin,Indirect 0.3 mg/dL (0.0-1.2); Bilirubin,Total 0.5 mg/dL (0.3-1.0); Blood Urea Nitrogen 22 mg/dL (8-23); Calcium 9.1 mg/dL (8.6-10.3); Carbon Dioxide 33 mEq/L (23-29); Chloride 91 mEq/L (98-107); Globulin 3.2 g/dL (2.4-3.5); Glucose 193 mg/dL (70-105); Osmolality,Calculated 287 (280-300); Potassium 4.4 mEq/L (3.5-5.1); Sodium 134 mEq/L (136-145); Total Protein 6.4 g/dL (6.4-8.9); eGFR For Non-African Americans > 60 (> 60)
[2018-09-28 15:46] LABS: Basophils # 0.1 K/mcL (0.0-0.2); Basophils % 0.3 %; Hematocrit 39.6 % (35.3-44.9); Hemoglobin 12.2 g/dL (11.5-15.4); Immature Granulocytes % 0.5 % (0-4); Lymphocytes # 0.7 K/mcL (0.6-4.6); Lymphocytes % 3.2 %; Mean Corpuscular HGB Conc 30.8 g/dL (31.6-35.5); Mean Corpuscular Hemoglobin 29.9 pg (28.0-33.3); Mean Corpuscular Volume 97.1 fL (83.0-100.0); Mean Platelet Volume 9.6 fL (9.4-12.4); Monocytes # 1.3 K/mcL (0.0-1.3); Monocytes % 5.9 %; Platelet Count 466 K/mcL (140-400); Red Blood Count 4.08 M/mcL (3.82-4.97); Red Cell Distribution Width 11.5 % (11.5-14.5); Segmented Neutrophils % 90.1 %
[2018-09-28 15:56] LABS: INR 1.4; Prothrombin Time 15.6 Seconds (9.4-12.1)
[2018-09-28 15:59] LABS: Activated Partial Thrombo Time 36.4 Seconds (26.0-36.0)
[2018-09-28] MEDS ORDERED: Levofloxacin 750 MG/150 ML 750 MG/150 ML BAG IVPB ONE (18:01)
[2018-09-28] MEDS ORDERED: 0.9 % Sodium Chloride 1,000 ML IVC ONE (19:17)
[2018-09-28] MEDS ORDERED: *HR* HYDROcodone/Acet 5/325 mg TABLET PO PRN (21:23)
[2018-09-28] MEDS ORDERED: 0.9 % Sodium Chloride 1,000 ML IVC SCH (21:30)
--- NOTE | 2018-09-28 23:17 | Internal Med History&Physical ---
Date of Encounter: 09/28/18 Time of Encounter: 23:17 Internal Medicine - H&P: HPI Chief complaint: SOB Admitted From: Home Plans for Post Hospital Care: Home History of present illness: Na Alejandre is a 68-year-old woman who is an active smoker with severe COPD on 3 L home oxygen who was admitted here about 4 months ago with acute respiratory failure secondary to COPD with concomitant pneumonia but signed out AMA shortly after. She presents to the ER via EMS with complaints of shortness of breath over the last 3 days as well as bilateral chest pain when coughing. EMS found her oxygen saturations to be low at the scene that they were unable to get her level above 90% on facemask. She remained persistently hypoxemic en route. In the ER she was placed on 5 L nasal cannula and given nebulizer t herapy. EKG showed sinus tachycardia. Lab work was remarkable for leukocyte count of 22. Chest x-ray is reviewed independently by me revealing of by basilar infiltrates. She is now admitted for further care. At this time she reports feeling better than upon initial arrival however she states that she will like to leave tomorrow as she has packages to receive at home. Past Med Surg Social Fam HX - Past Medical History Medical history: COPD Psychiatric history: no psych history - Past Surgical History Surgical History: non-contributory Additional surgical history: Partial hysterectomy - Social History Smoking Status: Current every day smoker Smokeless Tobacco Status: No Alcohol use: none Drug use: none - Family History Father Living Status: Hx Family Cancer: Yes (prostate) Mother Living Status: Hx Family Cancer: Yes (throat) Internal Medicine - H&P: Meds Albuterol Sulfate [Ventolin Hfa] 2 puff IH Q4H PRN 12/18/17 [History] Amitriptyline [Elavil] 10 mg PO HS 12/18/17 [History] Aspirin [Lo-Dose Aspirin EC] 81 mg PO DAILY 12/18/17 [History] Cyclobenzaprine [Flexeril] 10 mg PO TID PRN 12/18/17 [History] Fluticasone Propionate Nasal [Flonase] 2 spr NS DAILY PRN 12/18/17 [History] Fluticasone/Salmeterol [Advair 500-50 Diskus] 1 puff IH BID 12/18/17 [History] HYDROcodone/Acet 5/325 mg [[place] 5-325 mg] 1 tab PO Q6H PRN 12/18/17 [History] Tiotropium [Spiriva] 1 puff IH DAILY 12/18/17 [History] Oxygen 3 - 4 l NS DAILY 02/22/18 [History] Ipratropium/Albuterol Neb [Duoneb] 3 ml IH Q4HR PRN 09/28/18 [History] Allergy/AdvReac Type Severity Reaction Status Date / Time No Known Allergies Allergy Verified 09/28/18 22:24 All Systems PM: A 10-system review of systems was performed and is negative for pertinent findings except as documented above in the HPI. - Constitutional Vitals: Temp Pulse Resp BP Pulse Ox 97.4 F L 96 18 115/69 96 09/28/18 22:02 09/28/18 22:02 09/28/18 22:02 09/28/18 22:02 09/28/18 22:02 Exam: Vitals: Reviewed General: Thin-appearing woman lying in bed in no acute distress Skin: Decreased turgor and dry HEENT: Likely dry mucous membranes. No conjunctivae pallor. Neck: No lymphadenopathy. No JVD. No carotid bruits. No palpable thyroid. Chest: Reduced thoracic expansion with decreased breath sounds and fine rales at the bases. Heart: Normal S1 & S2; rhythmic. No rubs or murmurs. Abdomen: Non-distended, soft and non-tender to palpation. No peritoneal reaction. Extremities: No edema. No calf tenderness. Normal distal pulses. Neurological: Awake, alert and oriented to person, place and time. No focal deficits. Psych: Affect appropriate. Internal Med - H&P Results - Labs CBC & Chem 7: 09/28/18 15:01 09/28/18 15:01 Labs: Short CBC 09/28/18 Range/Units 15:01 WBC 22.2 H (4.3-11.1) K/mcL Hgb 12.2 (11.5-15.4) g/dL Hct 39.6 (35.3-44.9) % Plt Count 466 H (140-400) K/mcL Neutrophils # 20.0 H (1.6-8.9) K/mcL BMP 09/28/18 15:01 Sodium 134 L Potassium 4.4 Chloride 91 L Carbon Dioxide 33 H BUN 22 Creatinine 0.84 Glucose 193 H Calcium 9.1 Cardiac Enzymes 09/28/18 Range/Units 15:01 Troponin I < 0.03 (< 0.04) ng/mL Liver Function 09/28/18 Range/Units 15:01 Total Bilirubin 0.5 (0.3-1.0) mg/dL Direct Bilirubin 0.2 (0.0-0.2) mg/dL AST 10 L (13-39) Units/L ALT 6 L (7-52) Units/L Alkaline Phosphatase 94 (34-104) Units/L Albumin 3.2 L (3.5-5.7) g/dL - Impressions ITS Impressions Chest X-Ray 09/28/18 15:00 IMPRESSION: Bibasilar opacification and small effusions, left greater than right. Findings are likely related to CHF although superimposed inflammatory process is not excluded. COPD D/ / Aj Meza MD / Aj Meza MD Interpreting Provider: Aj Meza MD - Assessment and plan (1) Acute exacerbation of chronic obstructive airways disease Current Visit: Yes Status: Acute Assessment and plan: Will place on supplemental oxygen, standing nebulizer therapy and steroids. (2) Community acquired pneumonia Current Visit: Yes Status: Acute Assessment and plan: The patient reports cough, sob and pleuritic chest pain, seen to have leukocytosis and a notable infiltrate. Blood cultures drawn. Will send sputum culture and check urine antigens. Levofloxacin 500mg daily ordered. Qualifiers: Laterality: left Lung location: lower lobe of lung Qualified Code(s): J18.1 - Lobar pneumonia, unspecified organism (3) Acute on chronic respiratory failure with hypoxia and hypercapnia Current Visit: Yes Status: Acute Assessment and plan: Secondary to COPD exacerbation and pneumonia. Management as indicated above. (4) DVT prophylaxis Current Visit: Yes Status: Acute Assessment and plan: SubQ heparin indicated. (5) Smoker Current Visit: Yes Status: Acute Assessment and plan: Counseled accordingly and resources made available. - Time Spent With Patient Total time spent is greater than 50% in coordination of care (as documented) at patient's floor/unit and/or counseling patient: Greater than 35 minutes
[2018-09-28] MEDS: *HR* Heparin 5,000 UNIT/ML VIAL SQ SCH (23:28)
[2018-09-28] MEDS: Nicotine 14 MG PATCH.TD24 TD SCH (23:29)
[2018-09-28] MEDS: Ipratropium/Albuterol Neb 3 ML IH SCH (23:42)
[2018-09-29] MEDS: Ipratropium/Albuterol Neb 3 ML IH SCH ×6 (03:26→23:08)
[2018-09-29 04:34] LABS: Basophils % 0.2 %; Hematocrit 37.8 % (35.3-44.9); Hemoglobin 11.3 g/dL (11.5-15.4); Immature Granulocytes % 0.3 % (0-4); Lymphocytes # 0.5 K/mcL (0.6-4.6); Mean Corpuscular HGB Conc 29.9 g/dL (31.6-35.5); Mean Corpuscular Hemoglobin 29.1 pg (28.0-33.3); Mean Corpuscular Volume 97.4 fL (83.0-100.0); Mean Platelet Volume 9.8 fL (9.4-12.4); Monocytes # 0.3 K/mcL (0.0-1.3); Monocytes % 1.7 %; Neutrophils # 15.8 K/mcL (1.6-8.9); Platelet Count 423 K/mcL (140-400); Red Blood Count 3.88 M/mcL (3.82-4.97); Red Cell Distribution Width 11.4 % (11.5-14.5); Segmented Neutrophils % 94.8 %
[2018-09-29 04:43] LABS: INR 1.4; Prothrombin Time 15.9 Seconds (9.4-12.1)
[2018-09-29 04:44] LABS: BUN/Creatinine Ratio 34 (6-26); Blood Urea Nitrogen 16 mg/dL (8-23); Carbon Dioxide 30 mEq/L (23-29); Chloride 99 mEq/L (98-107); Glucose 127 mg/dL (70-105); Osmolality,Calculated 287 (280-300); Potassium 4.3 mEq/L (3.5-5.1); Sodium 137 mEq/L (136-145); eGFR For Non-African Americans > 60 (> 60)
[2018-09-29] MEDS: *HR* Heparin 5,000 UNIT/ML VIAL SQ SCH ×3 (05:46→21:22)
[2018-09-29] MEDS: Aspirin Enteric Coated 81 MG Tablet PO SCH (08:03)
[2018-09-29] MEDS: Fluticasone Propionate Nasal 50 MCG/SPRAY BOTTLE NS SCH (08:07)
[2018-09-29] MEDS ORDERED: predniSONE 20 MG TABLET PO SCH (09:00)
--- NOTE | 2018-09-29 13:35 | Internal Med Progress Note ---
Hospitalist Progress Note - Encounter Date of Encounter: 09/29/18 Time of Encounter: 08:00 - Subjective Interval History: patient was seen and examined at bed side. she reports that her breathing has improved with steroids and Abx, denies chest pain, fever, chills, palpitations. is tolerating PO diet. has no N/V/D. is inquiring about going home- i discussed plan of care with her and she has accepted to stay - Exam Vitals: Temp Pulse Resp BP Pulse Ox 97.5 F L 93 17 113/68 98 09/29/18 07:00 09/29/18 07:00 09/29/18 10:54 09/29/18 07:00 09/29/18 10:54 Exam: Vitals: Reviewed General: Thin-appearing woman lying in bed in no acute distress, speaks in full sentences Skin: Decreased turgor and dry HEENT: Likely dry mucous membranes. No conjunctivae pallor. Neck: No lymphadenopathy. No JVD. No carotid bruits. No palpable thyroid. Chest: Reduced thoracic expansion with decreased breath sounds and fine rales at the bases. wheezing in the anterior chest Heart: Normal S1 & S2; rhythmic. No rubs or murmurs. Abdomen: Non-distended, soft and non-tender to palpation. No peritoneal reaction. Extremities: No edema. No calf tenderness. Normal distal pulses. Neurological: Awake, alert and oriented to person, place and time. No focal deficits. Psych: Affect appropriate. - Assessment and Plan (1) Acute exacerbation of chronic obstructive airways disease Current Visit: Yes Status: Acute Assessment and Plan: started on IV steroids, will continue to taper continue with IV levaquin Oxygen to keeps sats around 90s influenza negative will send urine antigens BCX NGTD CXR: IMPRESSION: Bibasilar opacification and small effusions, left greater than right. Findings are likely related to CHF although superimposed inflammatory process is not excluded. COPD (2) Community acquired pneumonia Current Visit: Yes Status: Acute Assessment and Plan: management as per above (3) Acute on chronic respiratory failure with hypoxia and hypercapnia Current Visit: Yes Status: Acute Assessment and Plan: Secondary to COPD exacerbation and pneumonia. Management as indicated above. (4) Smoker Current Visit: Yes Status: Acute Assessment and Plan: Counseled accordingly and resources made available. (5) DVT prophylaxis Current Visit: Yes Status: Acute Assessment and Plan: SubQ heparin - Time Spent with Patient Total time spent is greater than 50% in coordination of care (as documented) at patient's floor/unit and/or counseling patient: Internal Medicine: Result - Labs CBC & Chem 7: 09/29/18 03:25 09/29/18 03:25 Labs: Short CBC 09/28/18 09/29/18 Range/Units 15:01 03:25 WBC 22.2 H 16.7 H (4.3-11.1) K/mcL Hgb 12.2 11.3 L (11.5-15.4) g/dL Hct 39.6 37.8 (35.3-44.9) % Plt Count 466 H 423 H (140-400) K/mcL Neutrophils # 20.0 H 15.8 H (1.6-8.9) K/mcL BMP 09/28/18 09/29/18 15:01 03:25 Sodium 134 L 137 Potassium 4.4 4.3 Chloride 91 L 99 Carbon Dioxide 33 H 30 H BUN 22 16 Creatinine 0.84 0.47 L Glucose 193 H 127 H Calcium 9.1 9.0 Cardiac Enzymes 09/28/18 Range/Units 15:01 Troponin I < 0.03 (< 0.04) ng/mL Liver Function 09/28/18 Range/Units 15:01 Total Bilirubin 0.5 (0.3-1.0) mg/dL Direct Bilirubin 0.2 (0.0-0.2) mg/dL AST 10 L (13-39) Units/L ALT 6 L (7-52) Units/L Alkaline Phosphatase 94 (34-104) Units/L Albumin 3.2 L (3.5-5.7) g/dL - ABG Interpretation ABG results: PT/INR, D-dimer PT 15.9 Seconds (9.4-12.1) H 09/29/18 03:25 - Impressions Impressions Chest X-Ray 09/28/18 15:00 IMPRESSION: Bibasilar opacification and small effusions, left greater than right. Findings are likely related to CHF although superimposed inflammatory process is not excluded. COPD D/ / Aj Meza MD / Aj Meaz MD Interpreting Provider: Aj Meza MD Consult Discharge Plan - Plan Referrals: Jani Pelletier DO [Primary Care Provider] - (2) Community acquired pneumonia Qualifiers: Laterality: left Lung location: lower lobe of lung Qualified Code(s): J18.1 - Lobar pneumonia, unspecified organism
--- NOTE | 2018-09-29 17:41 | Electrocardiograph Report ---
[address] [place], [place] [address] Test Date: 2018-09-28 Pat Name: Na Alejandre Department: [id number] Room: 2NE20 Gender: F [employer]board Action Assembler: : [id number] Requested By: Sergio Stratton Order Number: [id number] Reading MD: Ashok Dan Measurements Intervals [place] Rate: 101 P: 73 MA: 199 QRS: 75 QRSD: 105 T: 63 QT: 356 QTc: 462 Interpretive Statements Sinus tachycardia ST elevation, consider inferior injury Electronically Signed On 09-29-2018 17:40:14 EST by Ashok Dan
[2018-09-29] MEDS ORDERED: Levofloxacin 500 MG/100 ML 500 MG/100 ML BAG IVPB SCH (19:00)
[2018-09-29] MEDS: Nicotine 14 MG PATCH.TD24 TD SCH (21:22)
[2018-09-29] MEDS: MethylPREDNISolone 40 MG/ML VIAL IVP SCH (21:22)
[2018-09-30] MEDS: Ipratropium/Albuterol Neb 3 ML IH SCH ×3 (04:06→10:23)
[2018-09-30] MEDS: *HR* Heparin 5,000 UNIT/ML VIAL SQ SCH (04:22)
[2018-09-30 04:53] LABS: Basophils % 0.1 %; Mean Platelet Volume 9.4 fL (9.4-12.4); Monocytes % 2.7 %
[2018-09-30 04:55] LABS: Hematocrit 35.7 % (35.3-44.9); Hemoglobin 10.9 g/dL (11.5-15.4); Immature Granulocytes % 0.8 % (0-4); Lymphocytes # 0.7 K/mcL (0.6-4.6); Lymphocytes % 2.6 %; Mean Corpuscular HGB Conc 30.5 g/dL (31.6-35.5); Mean Corpuscular Hemoglobin 29.5 pg (28.0-33.3); Mean Corpuscular Volume 96.5 fL (83.0-100.0); Monocytes # 0.7 K/mcL (0.0-1.3); Platelet Count 531 K/mcL (140-400); Red Cell Distribution Width 11.4 % (11.5-14.5); Segmented Neutrophils % 93.8 %
[2018-09-30 05:11] LABS: BUN/Creatinine Ratio 36 (6-26); Blood Urea Nitrogen 27 mg/dL (8-23); Calcium 9.1 mg/dL (8.6-10.3); Carbon Dioxide 34 mEq/L (23-29); Chloride 102 mEq/L (98-107); Glucose 147 mg/dL (70-105); Osmolality,Calculated 302 (280-300); Potassium 4.3 mEq/L (3.5-5.1); Sodium 142 mEq/L (136-145); eGFR For Non-African Americans > 60 (> 60)
[2018-09-30 05:26] LABS: Platelet Estimate Normal (Normal)
[2018-09-30 07:08] VITALS: BP 143/83
[2018-09-30] MEDS: Fluticasone Propionate Nasal 50 MCG/SPRAY BOTTLE NS SCH (07:45)
[2018-09-30] MEDS: MethylPREDNISolone 40 MG/ML VIAL IVP SCH (07:45)
[2018-09-30] MEDS: Aspirin Enteric Coated 81 MG Tablet PO SCH (07:46)
--- NOTE | 2018-09-30 10:12 | Discharge Summary ---
Orders not resulted at time of discharge: Pending orders 09/28/18 15:13 Culture,Blood [BC] Stat 09/28/18 20:00 Culture,Sputum with Gram Stain [RM] Stat 09/29/18 00:10 Legionella Antigen [RM] Routine Streptococcal pneumoniae urin antigen [S. Pneumoniae Antigen] [RM] Routine 09/29/18 13:40 Legionella Antigen [RM] Stat Streptococcal pneumoniae urin antigen [S. Pneumoniae Antigen] [RM] Stat 09/30/18 08:53 EV echocardiogram Routine Date of Encounter: 09/30/18 Time of Encounter: 10:09 - Discharge Diagnosis (1) Acute exacerbation of chronic obstructive airways disease Priority: Primary Status: Acute (2) Community acquired pneumonia Priority: Secondary Status: Acute Qualifiers: Laterality: left Lung location: lower lobe of lung Qualified Code(s): J18.1 - Lobar pneumonia, unspecified organism (3) Acute on chronic respiratory failure with hypoxia and hypercapnia Priority: Secondary Status: Acute (4) Smoker Priority: Secondary Status: Acute (5) DVT prophylaxis Priority: Secondary Status: Acute Hospital course: Ms. Alejandre is a 68 year old female "Na Alejandre is a 68-year-old woman who is an active smoker with severe COPD on 3 L home oxygen who was admitted here about 4 months ago with acute respiratory failure secondary to COPD with concomitant pneumonia but signed out AMA shortly after. She presents to the ER via EMS with complaints of shortness of breath over the last 3 days as well as bilateral chest pain when coughing. EMS found her oxygen saturations to be low at the scene that they were unable to get her level above 90% on facemask. She remained persistently hypoxemic en route. In the ER she was placed on 5 L nasal cannula and given nebulizer therapy. EKG showed sinus tachycardia. Lab work was remarkable for leukocyte count of 22. Chest x-ray is reviewed independently by me revealing of by basilar infiltrates. She is now admitted for further care. At this time she reports feeling better than upon initial arrival however she states that she will like to leave tomorrow as she has packages to receive at home." She was started on IV steroids along with IV antibiotics. Influenza was negative, sputum culture growing multiple bacteria, blood cultures no growth to date, urine antigens pending. Respiratory status improved mildly with duo nebs and oxygen. Echocardiogram ordered to assess EF and right heart function and to evaluate for pulmonary hypertension. Patient wanted to sign AMA and go to home. Explained to the patient the importance of disease management in the hospital and risk of signing out AMA. pt understood complication of not being cooperative with treatment management that includes but not limited to even . Patient signed AMA. Witnessed by nurse. Discharge discussed with: patient, nurse Time spent discussing smoking cessation with patient: more than 10 minutes - Time Spent with Patient Total time spent providing and/or coordinating discharge services: Less than 30 minutes - Discharge Medications Home Medications: Albuterol Sulfate [Ventolin Hfa] 2 puff IH Q4H PRN 12/18/17 [History] Amitriptyline [Elavil] 10 mg PO HS 12/18/17 [History] Aspirin [Lo-Dose Aspirin EC] 81 mg PO DAILY 12/18/17 [History] Cyclobenzaprine [Flexeril] 10 mg PO TID PRN 12/18/17 [History] Fluticasone Propionate Nasal [Flonase] 2 spr NS DAILY PRN 12/18/17 [History] Fluticasone/Salmeterol [Advair 500-50 Diskus] 1 puff IH BID 12/18/17 [History] HYDROcodone/Acet 5/325 mg [[place] 5-325 mg] 1 tab PO Q6H PRN 12/18/17 [History] Tiotropium [Spiriva] 1 puff IH DAILY 12/18/17 [History] Oxygen 3 - 4 l NS DAILY 02/22/18 [History] Ipratropium/Albuterol Neb [Duoneb] 3 ml IH Q4HR PRN 09/28/18 [History] Allergies/Adverse Reactions: Allergy/AdvReac Type Severity Reaction Status Date / Time No Known Allergies Allergy Verified 09/28/18 22:24 Date of admission: 09/29/18 17:05 Primary care physician: Jani Pelletier DO Consults: 09/29/18 01:48 Consult to Nutrition [CONS] Routine Comment: Consulting Provider: NUTRITION Reason for Dietary Consult: MST Score - Constitutional Vitals: Temp Pulse Resp BP Pulse Ox 97.3 F L 97 17 143/83 96 09/30/18 07:02 09/30/18 07:02 09/30/18 07:02 09/30/18 07:02 09/30/18 07:02 Exam: Vitals: Reviewed General: Thin-appearing woman lying in bed in no acute distress, speaks in full sentences Skin: Decreased turgor and dry HEENT: Likely dry mucous membranes. No conjunctivae pallor. Neck: No lymphadenopathy. No JVD. No carotid bruits. No palpable thyroid. Chest: Reduced thoracic expansion with decreased breath sounds and fine rales at the bases. wheezing in the anterior chest Heart: Normal S1 & S2; rhythmic. No rubs or murmurs. Abdomen: Non-distended, soft and non-tender to palpation. No peritoneal reaction. Extremities: No edema. No calf tenderness. Normal distal pulses. Neurological: Awake, alert and oriented to person, place and time. No focal deficits. Psych: Affect appropriate. - Patient Status Disposition: Left Against Medical Advice Condition: Serious Overall status at discharge: patient is not back to baseline - Discharge Instructions Instructions: Chronic Obstructive Pulmonary Disease (DC), Pneumonia (DC) Follow Up With: Jani Pelletier DO [Primary Care Provider] -
--- NOTE | 2018-09-30 15:07 | Physician Discharge Referral ---
Home Health/Hosp Referral Info Transfer to: Home Health Provider in Charge Post Discharge: PCP - Diagnosis (1) Acute exacerbation of chronic obstructive airways disease Status: Acute (2) Community acquired pneumonia Status: Acute (3) Acute on chronic respiratory failure with hypoxia and hypercapnia Status: Acute (4) Smoker Status: Acute (5) DVT prophylaxis Status: Acute - Respiratory Orders Smoking Cessation: Smoking cessation has been advised. For more information, call the [employer] Quit Line at 7-445-EKPU-NOW. - Services Needed Following services are medically necessary services: Nursing, Home Health Aide - Transfer Medications Home Medications: Albuterol Sulfate [Ventolin Hfa] 2 puff IH Q4H PRN 12/18/17 [History] Amitriptyline [Elavil] 10 mg PO HS 12/18/17 [History] Aspirin [Lo-Dose Aspirin EC] 81 mg PO DAILY 12/18/17 [History] Cyclobenzaprine [Flexeril] 10 mg PO TID PRN 12/18/17 [History] Fluticasone Propionate Nasal [Flonase] 2 spr NS DAILY PRN 12/18/17 [History] Fluticasone/Salmeterol [Advair 500-50 Diskus] 1 puff IH BID 12/18/17 [History] HYDROcodone/Acet 5/325 mg [[place] 5-325 mg] 1 tab PO Q6H PRN 12/18/17 [History] Tiotropium [Spiriva] 1 puff IH DAILY 12/18/17 [History] Oxygen 3 - 4 l NS DAILY 02/22/18 [History] Ipratropium/Albuterol Neb [Duoneb] 3 ml IH Q4HR PRN 09/28/18 [History] Allergies/Adverse Reactions: Allergy/AdvReac Type Severity Reaction Status Date / Time No Known Allergies Allergy Verified 09/28/18 22:24 Certification: Further, I certify that my clinical findings support that this patient is homebound (i.e. absences from home require considerable and taxing effort and are for medical reasons or taoist services or infrequently or short duration when for other reasons) because: Homebound Reason: Patient requires assistance of a person or device to safely leave home Attestation: My signature below is to certify that this patient is under my care and that I, or nurse practitioner, or a physician's assistant associate full professor working with me, has a [id number] encounter with this patient.
== END 2018-09-30 10:26 | disposition left against medical advice (07) | DRG 190 ==
LOC: 2NENU 14:39 → EMEROOARM 14:39 → SUATTDRO 21:27 → 2NENU 21:38
PROVIDERS: ADMIT Internal Medicine; ATTEND Internal Medicine

== ENCOUNTER 2019-09-21 11:54 | Inpatient (IN) ==
[2019-09-21] MEDS ORDERED: Ipratropium/Albuterol Neb 3 ML IH ONE (12:00)
[2019-09-21] MEDS ORDERED: methylPREDNISolone 125 MG/2 ML VIAL IVP ONE (12:00)
[2019-09-21] MEDS ORDERED: Ipratropium/Albuterol Neb 3 ML ONE (12:01)
[2019-09-21 12:28] LABS: Basophils # 0.1 K/mcL (0.0-0.2); Basophils % 0.6 %; Eosinophils # 0.1 K/mcL (0.0-0.6); Eosinophils % 0.6 %; Hematocrit 44.4 % (35.3-44.9); Hemoglobin 13.3 g/dL (11.5-15.4); Immature Granulocytes % 0.4 % (0-4); Lymphocytes # 0.9 K/mcL (0.6-4.6); Lymphocytes % 6.8 %; Mean Corpuscular Hemoglobin 30.5 pg (28.0-33.3); Mean Corpuscular Volume 101.8 fL (83.0-100.0); Monocytes % 7.1 %; Neutrophils # 11.5 K/mcL (1.6-8.9); Platelet Count 206 K/mcL (140-400); Red Blood Count 4.36 M/mcL (3.82-4.97); Red Cell Distribution Width 11.9 % (11.5-14.5); Segmented Neutrophils % 84.5 %; White Blood Count 13.6 K/mcL (4.3-11.1)
[2019-09-21 12:30] LABS: INR 1.2; Prothrombin Time 13.6 Seconds (9.4-12.1)
[2019-09-21] MEDS ORDERED: levoFLOXacin 500 MG/100 ML 500 MG/100 ML BAG IVPB ONE (12:36)
[2019-09-21 12:51] LABS: Alanine Aminotransferase 8 Units/L (7-52); Albumin 3.8 g/dL (3.5-5.7); Albumin/Globulin Ratio 1.2 (1.1-2.2); Alkaline Phosphatase 75 Units/L (34-104); Aspartate Amino Transferase 11 Units/L (13-39); BUN/Creatinine Ratio 43 (6-26); Bilirubin,Direct 0.2 mg/dL (0.0-0.2); Bilirubin,Indirect 0.6 mg/dL (0.0-1.0); Bilirubin,Total 0.8 mg/dL (0.3-1.0); Blood Urea Nitrogen 17 mg/dL (8-23); Calcium 9.7 mg/dL (8.6-10.3); Carbon Dioxide 42 mEq/L (23-29); Chloride 94 mEq/L (98-107); Globulin 3.2 g/dL (2.4-3.5); Glucose 84 mg/dL (70-105); Osmolality,Calculated 291 (280-300); Sodium 140 mEq/L (136-145); Troponin I 0.03 ng/mL (< 0.04); eGFR For African Americans > 60 (> 60); eGFR For Non-African Americans > 60 (> 60)
[2019-09-21] MEDS ORDERED: Ondansetron 4 MG/2 ML VIAL IVP PRN (13:07)
[2019-09-21] MEDS ORDERED: Naloxone 0.4 MG/ML INJ IVP PRN (13:07)
[2019-09-21] MEDS ORDERED: Nicotine 21 MG PATCH.TD24 TD ONE (13:26)
[2019-09-21] MEDS ORDERED: Nicotine 2 MG GUM BC ONE (15:15)
[2019-09-21] MEDS: Ipratropium/Albuterol Neb 3 ML IH SCH ×2 (16:16→20:19)
[2019-09-21 17:33] LABS: Adenovirus Not Detected (Not Detect); Bordetella Pertussis Not Detected (Not Detect); Chlamydophila pneumoniae Not Detected (Not Detect); Coronavirus 229E Not Detected (Not Detect); Coronavirus HKU1 Not Detected (Not Detect); Coronavirus NL63 Not Detected (Not Detect); Coronavirus OC43 Not Detected (Not Detect); Human Metapneumovirus Not Detected (Not Detect); Human Rhinovirus/Enterovirus Not Detected (Not Detect); Influenza A Subtype 2009 H1 Not Detected (Not Detect); Influenza A Untypeable Not Detected (Not Detect); Influenza B Not Detected (Not Detect); Mycoplasma pneumoniae Not Detected (Not Detect); Parainfluenza Virus 1 Not Detected (Not Detect); Parainfluenza Virus 2 Not Detected (Not Detect); Parainfluenza Virus 3 Not Detected (Not Detect); Parainfluenza Virus 4 Not Detected (Not Detect); Respiratory Syncytial Virus Not Detected (Not Detect)
[2019-09-21] MEDS: MethylPREDNISolone 40 MG/ML VIAL IVP SCH (17:38)
[2019-09-21] MEDS: *HR* Heparin 5,000 UNIT/ML VIAL SQ SCH (17:38)
[2019-09-22] MEDS: Ipratropium/Albuterol Neb 3 ML IH SCH ×3 (00:13→07:35)
[2019-09-22 04:31] LABS: Basophils % 0.1 %; Hematocrit 39.2 % (35.3-44.9); Hemoglobin 11.8 g/dL (11.5-15.4); Immature Granulocytes % 0.4 % (0-4); Immature Platelets 4.3 % (1.1-6.1); Lymphocytes # 0.5 K/mcL (0.6-4.6); Lymphocytes % 4.6 %; Mean Corpuscular HGB Conc 30.1 g/dL (31.6-35.5); Mean Corpuscular Hemoglobin 30.5 pg (28.0-33.3); Mean Corpuscular Volume 101.3 fL (83.0-100.0); Mean Platelet Volume 10.4 fL (9.4-12.4); Monocytes # 0.2 K/mcL (0.0-1.3); Monocytes % 1.9 %; Neutrophils # 9.7 K/mcL (1.6-8.9); Platelet Count 227 K/mcL (140-400); Red Blood Count 3.87 M/mcL (3.82-4.97); Red Cell Distribution Width 11.9 % (11.5-14.5); White Blood Count 10.4 K/mcL (4.3-11.1)
[2019-09-22 05:01] LABS: BUN/Creatinine Ratio 32 (6-26); Blood Urea Nitrogen 19 mg/dL (8-23); Calcium 9.4 mg/dL (8.6-10.3); Carbon Dioxide 43 mEq/L (23-29); Chloride 95 mEq/L (98-107); Glucose 139 mg/dL (70-105); Osmolality,Calculated 293 (280-300); Potassium 3.7 mEq/L (3.5-5.1); Sodium 139 mEq/L (136-145); eGFR For African Americans > 60 (> 60); eGFR For Non-African Americans > 60 (> 60)
[2019-09-22] MEDS: *HR* Heparin 5,000 UNIT/ML VIAL SQ SCH ×2 (05:27→17:30)
[2019-09-22] MEDS: MethylPREDNISolone 40 MG/ML VIAL IVP SCH ×2 (05:27→17:30)
[2019-09-22] MEDS: levoFLOXacin 750 MG/150 ML 750 MG/150 ML BAG IVPB SCH (08:34)
[2019-09-22] MEDS: Nicotine 21 MG PATCH.TD24 TD SCH (08:34)
[2019-09-22] MEDS ORDERED: Fluticasone Propionate Nasal 50 MCG/SPRAY BOTTLE NS PRN ×2 (11:32→11:35)
[2019-09-22] MEDS: *HR* HYDROcodone/Acet 5/325 mg TABLET PO PRN ×2 (14:09→23:49)
[2019-09-22] MEDS: Levalbuterol Neb 0.63 MG/3 ML IH SCH ×2 (15:39→21:58)
[2019-09-22] MEDS ORDERED: NON-FORMULARY MEDICATION 1 EACH EACH (Fluticasone/Salmeterol [Advair 500-50 Diskus] 1 PUFF IH SCH (21:00)
[2019-09-22] MEDS: Budesonide/Formoterol 160/4.5 1 PUFF INH IH SCH (21:57)
[2019-09-23] MEDS: Levalbuterol Neb 0.63 MG/3 ML IH SCH ×2 (04:05→09:26)
[2019-09-23 05:21] LABS: Mean Corpuscular HGB Conc 30.3 g/dL (31.6-35.5); Mean Corpuscular Hemoglobin 30.3 pg (28.0-33.3); Mean Corpuscular Volume 100.3 fL (83.0-100.0); Platelet Count 257 K/mcL (140-400); Red Blood Count 3.79 M/mcL (3.82-4.97); White Blood Count 19.6 K/mcL (4.3-11.1)
[2019-09-23 05:22] LABS: Hemoglobin 11.5 g/dL (11.5-15.4)
[2019-09-23] MEDS: *HR* Heparin 5,000 UNIT/ML VIAL SQ SCH (05:23)
[2019-09-23] MEDS: MethylPREDNISolone 40 MG/ML VIAL IVP SCH (05:23)
[2019-09-23 06:16] LABS: Blood Urea Nitrogen 20 mg/dL (8-23); Calcium 9.2 mg/dL (8.6-10.3); Chloride 97 mEq/L (98-107); Glucose 110 mg/dL (70-105); Osmolality,Calculated 301 (280-300); Potassium 3.8 mEq/L (3.5-5.1); Sodium 144 mEq/L (136-145)
[2019-09-23 08:56] LABS: BUN/Creatinine Ratio 34 (6-26); Carbon Dioxide 42 mEq/L (23-29); eGFR For African Americans > 60 (> 60); eGFR For Non-African Americans > 60 (> 60)
[2019-09-23] MEDS: levoFLOXacin 750 MG/150 ML 750 MG/150 ML BAG IVPB SCH (08:56)
[2019-09-23] MEDS: Nicotine 21 MG PATCH.TD24 TD SCH (08:56)
[2019-09-23] MEDS ORDERED: Aspirin Enteric Coated 81 MG Tablet PO SCH (09:00)
[2019-09-23 09:03] VITALS: BP 112/65
[2019-09-23] MEDS: Budesonide/Formoterol 160/4.5 1 PUFF INH IH SCH (09:26)
== END 2019-09-23 10:34 | disposition home or self-care (01) | DRG 190 ==
LOC: 2ANU 11:54 → EMEROOARM 11:54 → 2ANU 15:22
PROVIDERS: ADMIT Internal Medicine; ATTEND Internal Medicine

== ENCOUNTER 2019-10-11 01:53 | Inpatient (IN) ==
[2019-10-11 03:05] LABS: BUN/Creatinine Ratio 30 (6-26); Blood Urea Nitrogen 16 mg/dL (8-23); Carbon Dioxide 44 mEq/L (23-29); Chloride 93 mEq/L (98-107); Glucose 122 mg/dL (70-105); Osmolality,Calculated 294 (280-300); Potassium 4.9 mEq/L (3.5-5.1); Sodium 141 mEq/L (136-145); Troponin I 0.03 ng/mL (< 0.04); eGFR For African Americans > 60 (> 60); eGFR For Non-African Americans > 60 (> 60)
[2019-10-11 03:10] LABS: Basophils % 0.2 %; Eosinophils # 0.2 K/mcL (0.0-0.6); Eosinophils % 1.6 %; Hematocrit 33.7 % (35.3-44.9); Hemoglobin 10.1 g/dL (11.5-15.4); Immature Granulocytes % 0.4 % (0-4); Lymphocytes % 8.4 %; Mean Corpuscular Hemoglobin 30.3 pg (28.0-33.3); Mean Corpuscular Volume 101.2 fL (83.0-100.0); Mean Platelet Volume 9.4 fL (9.4-12.4); Monocytes # 1.4 K/mcL (0.0-1.3); Platelet Count 240 K/mcL (140-400); Red Blood Count 3.33 M/mcL (3.82-4.97); Segmented Neutrophils % 77.4 %; White Blood Count 11.6 K/mcL (4.3-11.1)
[2019-10-11] MEDS ORDERED: Cefepime HCl 2,000 MG in Water for inj. (sterile) 20 ML IVP STA (06:20)
[2019-10-11] MEDS ORDERED: Naloxone 0.4 MG/ML INJ IVP PRN (07:34)
[2019-10-11] MEDS ORDERED: Ondansetron 4 MG/2 ML VIAL IVP PRN (07:34)
[2019-10-11] MEDS ORDERED: Acetaminophen 325 MG TABLET PO PRN (07:34)
[2019-10-11] MEDS ORDERED: Ipratropium Neb 0.5 MG NEBULIZER IH PRN (07:38)
[2019-10-11] MEDS: Ipratropium/Albuterol Neb 3 ML IH SCH ×5 (08:29→23:36)
[2019-10-11] MEDS ORDERED: NON-FORMULARY MEDICATION 1 EACH EACH (Fluticasone/Salmeterol [Advair 500-50 Diskus] 1 PUFF IH SCH (09:00)
[2019-10-11 09:15] LABS: VBG HCO3 41 mEq/L (21-27); VBG PCO2 80 mmHg (41-51); VBG PH 7.32 pH Units (7.32-7.42); VBG PO2 72 mmHg (25-50)
[2019-10-11] MEDS: Aspirin Enteric Coated 81 MG Tablet PO SCH (11:00)
[2019-10-11] MEDS: Budesonide/Formoterol 160/4.5 1 PUFF INH IH SCH ×2 (11:23→19:52)
[2019-10-11] MEDS: Piperacillin/Tazobactam 3.375 GM in 0.9 % Sodium Chloride Mini Bag 100 ML IVPB SCH ×2 (13:23→20:40)
[2019-10-11] MEDS: MethylPREDNISolone 40 MG/ML VIAL IVP SCH ×2 (13:23→18:19)
[2019-10-11] MEDS: Nicotine 21 MG PATCH.TD24 TD SCH (13:23)
[2019-10-11 15:58] LABS: Adenovirus Not Detected (Not Detect); Bordetella Pertussis Not Detected (Not Detect); Chlamydophila pneumoniae Not Detected (Not Detect); Coronavirus 229E Not Detected (Not Detect); Coronavirus HKU1 Not Detected (Not Detect); Coronavirus NL63 Not Detected (Not Detect); Coronavirus OC43 Not Detected (Not Detect); Human Metapneumovirus Not Detected (Not Detect); Human Rhinovirus/Enterovirus Not Detected (Not Detect); Influenza A Subtype 2009 H1 Not Detected (Not Detect); Influenza A Untypeable Not Detected (Not Detect); Influenza B Not Detected (Not Detect); Mycoplasma pneumoniae Not Detected (Not Detect); Parainfluenza Virus 1 Not Detected (Not Detect); Parainfluenza Virus 2 Not Detected (Not Detect); Parainfluenza Virus 3 Not Detected (Not Detect); Parainfluenza Virus 4 Not Detected (Not Detect); Respiratory Syncytial Virus Not Detected (Not Detect)
[2019-10-12] MEDS: *HR* HYDROcodone/Acet 5/325 mg TABLET PO PRN ×2 (02:42→23:30)
[2019-10-12] MEDS: Ipratropium/Albuterol Neb 3 ML IH SCH ×5 (04:46→20:02)
[2019-10-12 05:09] LABS: Basophils % 0.1 %; Hematocrit 33.7 % (35.3-44.9); Hemoglobin 10.7 g/dL (11.5-15.4); Immature Granulocytes % 0.6 % (0-4); Lymphocytes # 0.6 K/mcL (0.6-4.6); Lymphocytes % 6.4 %; Mean Corpuscular HGB Conc 31.8 g/dL (31.6-35.5); Mean Corpuscular Hemoglobin 30.7 pg (28.0-33.3); Mean Corpuscular Volume 96.8 fL (83.0-100.0); Mean Platelet Volume 9.3 fL (9.4-12.4); Monocytes # 0.4 K/mcL (0.0-1.3); Monocytes % 4.6 %; Neutrophils # 8.4 K/mcL (1.6-8.9); Platelet Count 258 K/mcL (140-400); Red Blood Count 3.48 M/mcL (3.82-4.97); Red Cell Distribution Width 12.3 % (11.5-14.5); Segmented Neutrophils % 88.3 %; White Blood Count 9.5 K/mcL (4.3-11.1)
[2019-10-12 05:29] LABS: BUN/Creatinine Ratio 27 (6-26); Blood Urea Nitrogen 13 mg/dL (8-23); Calcium 8.9 mg/dL (8.6-10.3); Carbon Dioxide 39 mEq/L (23-29); Chloride 98 mEq/L (98-107); Glucose 173 mg/dL (70-105); Magnesium 2.2 mg/dL (1.6-2.6); Osmolality,Calculated 296 (280-300); Phosphorous 2.9 mg/dL (2.7-4.5); Potassium 3.8 mEq/L (3.5-5.1); Sodium 141 mEq/L (136-145); eGFR For African Americans > 60 (> 60); eGFR For Non-African Americans > 60 (> 60)
[2019-10-12] MEDS: Piperacillin/Tazobactam 3.375 GM in 0.9 % Sodium Chloride Mini Bag 100 ML IVPB SCH ×3 (06:32→22:00)
[2019-10-12] MEDS: MethylPREDNISolone 40 MG/ML VIAL IVP SCH ×2 (06:32→17:44)
[2019-10-12] MEDS: Budesonide/Formoterol 160/4.5 1 PUFF INH IH SCH ×2 (07:20→20:01)
[2019-10-12] MEDS: Nicotine 21 MG PATCH.TD24 TD SCH (08:12)
[2019-10-12] MEDS: Aspirin Enteric Coated 81 MG Tablet PO SCH (08:12)
[2019-10-12 10:38] LABS: Estimated Average Glucose 108 mg/dl
[2019-10-12] MEDS: Fluticasone Propionate Nasal 50 MCG/SPRAY BOTTLE NS PRN (20:44)
[2019-10-13] MEDS: Ipratropium/Albuterol Neb 3 ML IH SCH ×6 (00:06→20:34)
[2019-10-13] MEDS: Piperacillin/Tazobactam 3.375 GM in 0.9 % Sodium Chloride Mini Bag 100 ML IVPB SCH ×3 (04:54→20:07)
[2019-10-13] MEDS: MethylPREDNISolone 40 MG/ML VIAL IVP SCH ×2 (06:31→17:09)
[2019-10-13] MEDS: Budesonide/Formoterol 160/4.5 1 PUFF INH IH SCH ×2 (07:25→20:34)
[2019-10-13] MEDS: Aspirin Enteric Coated 81 MG Tablet PO SCH (09:27)
[2019-10-13] MEDS: Nicotine 21 MG PATCH.TD24 TD SCH (09:27)
[2019-10-13] MEDS: Fluticasone Propionate Nasal 50 MCG/SPRAY BOTTLE NS PRN (09:30)
[2019-10-13] MEDS: *HR* HYDROcodone/Acet 5/325 mg TABLET PO PRN ×2 (09:31→23:11)
[2019-10-14] MEDS: Ipratropium/Albuterol Neb 3 ML IH SCH ×4 (00:01→11:11)
[2019-10-14] MEDS: Piperacillin/Tazobactam 3.375 GM in 0.9 % Sodium Chloride Mini Bag 100 ML IVPB SCH ×2 (03:47→11:32)
[2019-10-14] MEDS: MethylPREDNISolone 40 MG/ML VIAL IVP SCH (05:16)
[2019-10-14 07:19] LABS: Basophils % 0.1 %; Eosinophils % 0.2 %; Hematocrit 37.8 % (35.3-44.9); Hemoglobin 11.4 g/dL (11.5-15.4); Immature Granulocytes % 0.6 % (0-4); Lymphocytes # 1.1 K/mcL (0.6-4.6); Lymphocytes % 7.1 %; Mean Corpuscular HGB Conc 30.2 g/dL (31.6-35.5); Mean Corpuscular Hemoglobin 29.9 pg (28.0-33.3); Mean Corpuscular Volume 99.2 fL (83.0-100.0); Mean Platelet Volume 9.3 fL (9.4-12.4); Monocytes # 0.7 K/mcL (0.0-1.3); Monocytes % 4.6 %; Platelet Count 332 K/mcL (140-400); Red Blood Count 3.81 M/mcL (3.82-4.97); Red Cell Distribution Width 12.6 % (11.5-14.5); Segmented Neutrophils % 87.4 %
[2019-10-14 07:25] LABS: White Blood Count 14.9 K/mcL (4.3-11.1)
[2019-10-14] MEDS: Budesonide/Formoterol 160/4.5 1 PUFF INH IH SCH (07:25)
[2019-10-14 07:42] LABS: BUN/Creatinine Ratio 32 (6-26); Blood Urea Nitrogen 20 mg/dL (8-23); Calcium 8.9 mg/dL (8.6-10.3); Carbon Dioxide 36 mEq/L (23-29); Chloride 99 mEq/L (98-107); Glucose 99 mg/dL (70-105); Osmolality,Calculated 297 (280-300); Potassium 4.3 mEq/L (3.5-5.1); Sodium 142 mEq/L (136-145); eGFR For African Americans > 60 (> 60); eGFR For Non-African Americans > 60 (> 60)
[2019-10-14] MEDS: Nicotine 21 MG PATCH.TD24 TD SCH (09:47)
[2019-10-14] MEDS: Aspirin Enteric Coated 81 MG Tablet PO SCH (09:47)
[2019-10-14 12:14] VITALS: BP 104/65
[2019-10-14] MEDS ORDERED: Aminoglycoside Consult 1 EACH MC ONE (14:16)
[2019-10-15] MEDS ORDERED: MethylPREDNISolone 40 MG/ML VIAL IVP SCH (09:00)
== END 2019-10-14 14:17 | disposition left against medical advice (07) | DRG 194 ==
LOC: CDU 01:53 → EMEROOARM 01:53 → SUATTDRO 06:33 → CDU 08:06 → 3ANU 17:03
PROVIDERS: ADMIT Family Medicine; ATTEND Internal Medicine

== ENCOUNTER 2020-01-08 13:17 | Inpatient (IN) ==
[2020-01-08] MEDS ORDERED: methylPREDNISolone 125 MG/2 ML VIAL IVP ONE (13:54)
[2020-01-08] MEDS ORDERED: cefTRIAXone 1,000 MG in 0.9 % Sodium Chloride Mini Bag 100 ML IVPB ONE (13:54)
[2020-01-08] MEDS ORDERED: Azithromycin 500 MG in 0.9 % Sodium Chloride 250 ML IVPB ONE (13:54)
[2020-01-08] MEDS ORDERED: Piperacillin/Tazobactam 3.375 GM in 0.9 % Sodium Chloride Mini Bag 100 ML IVPB ONE (13:56)
[2020-01-08] MEDS ORDERED: levoFLOXacin 750 MG/150 ML 750 MG/150 ML BAG IVPB ONE (13:56)
[2020-01-08 14:03] LABS: Eosinophils % 0.1 %; Hemoglobin 12.5 g/dL (11.5-15.4); Red Cell Distribution Width 11.9 % (11.5-14.5)
[2020-01-08 14:05] LABS: Basophils # 0.1 K/mcL (0.0-0.2); Basophils % 0.3 %; Hematocrit 42.1 % (35.3-44.9); Lymphocytes # 0.6 K/mcL (0.6-4.6); Mean Corpuscular HGB Conc 29.7 g/dL (31.6-35.5); Mean Corpuscular Hemoglobin 30.6 pg (28.0-33.3); Mean Corpuscular Volume 103.2 fL (83.0-100.0); Mean Platelet Volume 9.9 fL (9.4-12.4); Monocytes # 1.3 K/mcL (0.0-1.3); Monocytes % 4.4 %; Neutrophils # 27.6 K/mcL (1.6-8.9); Platelet Count 229 K/mcL (140-400); Red Blood Count 4.08 M/mcL (3.82-4.97); Segmented Neutrophils % 92.2 %; White Blood Count 29.9 K/mcL (4.3-11.1)
[2020-01-08 14:25] LABS: BUN/Creatinine Ratio 32 (6-26); Blood Urea Nitrogen 17 mg/dL (8-23); Calcium 9.5 mg/dL (8.6-10.3); Carbon Dioxide 39 mEq/L (23-29); Chloride 95 mEq/L (98-107); Glucose 101 mg/dL (70-105); Osmolality,Calculated 290 (280-300); Potassium 4.7 mEq/L (3.5-5.1); Sodium 139 mEq/L (136-145); Troponin I 0.03 ng/mL (< 0.04); eGFR For African Americans > 60 (> 60); eGFR For Non-African Americans > 60 (> 60)
[2020-01-08 14:28] LABS: Platelet Estimate Normal (Normal)
[2020-01-08] MEDS ORDERED: Ondansetron 4 MG/2 ML VIAL IVP PRN (15:06)
[2020-01-08] MEDS ORDERED: Fluticasone Propionate Nasal 50 MCG/SPRAY BOTTLE NS PRN (15:07)
[2020-01-08] MEDS ORDERED: Ringers Solution, Lactated 500 ML IVC ONE (15:11)
[2020-01-08] MEDS ORDERED: Ringers Solution, Lactated 1,000 ML IVC ONE (15:11)
[2020-01-08] MEDS ORDERED: Morphine Sulfate 2 MG/ML SYRINGE IVP ONE (15:47)
[2020-01-08] MEDS ORDERED: Nicotine 2 MG GUM BC PRN (15:48)
[2020-01-08 16:38] LABS: VBG HCO3 38 mEq/L (21-27); VBG PCO2 68 mmHg (41-51); VBG PH 7.35 pH Units (7.32-7.42); VBG PO2 203 mmHg (25-50)
[2020-01-08] MEDS: MethylPREDNISolone 40 MG/ML VIAL IVP SCH (18:03)
[2020-01-08] MEDS: Nicotine 21 MG PATCH.TD24 TD SCH (18:03)
[2020-01-08] MEDS: Piperacillin/Tazobactam 3.375 GM in 0.9 % Sodium Chloride Mini Bag 100 ML IVPB SCH (18:06)
[2020-01-08] MEDS: Ipratropium/Albuterol Neb 3 ML IH SCH ×2 (18:32→20:13)
[2020-01-08] MEDS: Azithromycin 500 MG in 0.9 % Sodium Chloride 250 ML IVPB SCH (19:39)
[2020-01-09] MEDS: Ipratropium/Albuterol Neb 3 ML IH SCH ×7 (00:10→23:33)
[2020-01-09] MEDS: Piperacillin/Tazobactam 3.375 GM in 0.9 % Sodium Chloride Mini Bag 100 ML IVPB SCH ×2 (01:46→15:56)
[2020-01-09 03:07] LABS: Basophils % 0.1 %; Hemoglobin 11.6 g/dL (11.5-15.4); Monocytes % 1.2 %; Segmented Neutrophils % 95.2 %
[2020-01-09 03:09] LABS: Hematocrit 38.7 % (35.3-44.9); Immature Granulocytes % 1.1 % (0-4); Lymphocytes # 0.7 K/mcL (0.6-4.6); Lymphocytes % 2.4 %; Mean Corpuscular Hemoglobin 30.1 pg (28.0-33.3); Mean Corpuscular Volume 100.5 fL (83.0-100.0); Mean Platelet Volume 10.1 fL (9.4-12.4); Monocytes # 0.3 K/mcL (0.0-1.3); Neutrophils # 25.6 K/mcL (1.6-8.9); Platelet Count 216 K/mcL (140-400); Red Blood Count 3.85 M/mcL (3.82-4.97); White Blood Count 26.9 K/mcL (4.3-11.1)
[2020-01-09 03:24] LABS: BUN/Creatinine Ratio 34 (6-26); Blood Urea Nitrogen 21 mg/dL (8-23); Calcium 9.2 mg/dL (8.6-10.3); Carbon Dioxide 38 mEq/L (23-29); Chloride 98 mEq/L (98-107); Glucose 128 mg/dL (70-105); Osmolality,Calculated 291 (280-300); Potassium 3.7 mEq/L (3.5-5.1); Sodium 138 mEq/L (136-145); eGFR For African Americans > 60 (> 60); eGFR For Non-African Americans > 60 (> 60)
[2020-01-09 03:26] LABS: Platelet Estimate Normal (Normal)
[2020-01-09] MEDS: MethylPREDNISolone 40 MG/ML VIAL IVP SCH ×2 (05:24→17:02)
[2020-01-09] MEDS: *HR* Enoxaparin 40 MG/0.4 ML SYRINGE SQ SCH (05:26)
[2020-01-09 08:27] LABS: Bilirubin,Urine Negative (Negative); Blood,Urine Negative (Negative); Clarity,Urine Clear (Clear); Color,Urine Yellow (Yellow); Glucose,Urine (UA) 250 mg/dL (Normal); Ketones,Urine 15 mg/dL (Negative); Leukocyte Esterase,Urine Negative (Negative); Nitrite,Urine Negative (Negative); Protein,Urine Trace mg/dL (Neg-Trace); Specific Gravity,Urine 1.021 (1.010-1.025); Urobilinogen,Urine Normal (Normal)
[2020-01-09] MEDS: Nicotine 21 MG PATCH.TD24 TD SCH (08:44)
[2020-01-09] MEDS: Aspirin Enteric Coated 81 MG Tablet PO SCH (08:45)
[2020-01-09] MEDS ORDERED: predniSONE 20 MG TABLET PO SCH (09:00)
[2020-01-09] MEDS: *HR* HYDROcodone/Acet 5/325 mg TABLET PO PRN ×2 (14:26→20:22)
[2020-01-09] MEDS: Azithromycin 500 MG in 0.9 % Sodium Chloride 250 ML IVPB SCH (14:27)
[2020-01-09] MEDS: Acetaminophen 325 MG TABLET PO PRN (23:24)
[2020-01-10] MEDS: Piperacillin/Tazobactam 3.375 GM in 0.9 % Sodium Chloride Mini Bag 100 ML IVPB SCH ×3 (00:14→15:59)
[2020-01-10] MEDS: Ipratropium/Albuterol Neb 3 ML IH SCH ×6 (03:41→23:43)
[2020-01-10 04:24] LABS: Red Cell Distribution Width 12.1 % (11.5-14.5)
[2020-01-10 04:26] LABS: Hematocrit 36.4 % (35.3-44.9); Hemoglobin 10.7 g/dL (11.5-15.4); Mean Corpuscular HGB Conc 29.4 g/dL (31.6-35.5); Mean Platelet Volume 10.1 fL (9.4-12.4); Platelet Count 228 K/mcL (140-400); Red Blood Count 3.57 M/mcL (3.82-4.97); White Blood Count 29.5 K/mcL (4.3-11.1)
[2020-01-10 04:52] LABS: BUN/Creatinine Ratio 43 (6-26); Blood Urea Nitrogen 28 mg/dL (8-23); Calcium 8.8 mg/dL (8.6-10.3); Carbon Dioxide 40 mEq/L (23-29); Chloride 98 mEq/L (98-107); Glucose 193 mg/dL (70-105); Osmolality,Calculated 301 (280-300); Potassium 4.2 mEq/L (3.5-5.1); Sodium 140 mEq/L (136-145); eGFR For African Americans > 60 (> 60); eGFR For Non-African Americans > 60 (> 60)
[2020-01-10] MEDS: MethylPREDNISolone 40 MG/ML VIAL IVP SCH ×2 (05:36→17:26)
[2020-01-10] MEDS: *HR* Enoxaparin 40 MG/0.4 ML SYRINGE SQ SCH (05:36)
[2020-01-10 08:06] LABS: VBG HCO3 41 mEq/L (21-27); VBG PCO2 89 mmHg (41-51); VBG PH 7.27 pH Units (7.32-7.42); VBG PO2 37 mmHg (25-50)
[2020-01-10] MEDS: Aspirin Enteric Coated 81 MG Tablet PO SCH (09:29)
[2020-01-10] MEDS: Nicotine 21 MG PATCH.TD24 TD SCH (09:31)
[2020-01-10 15:21] LABS: VBG HCO3 41 mEq/L (21-27); VBG PCO2 83 mmHg (41-51); VBG PO2 32 mmHg (25-50)
[2020-01-10] MEDS: *HR* HYDROcodone/Acet 5/325 mg TABLET PO PRN (15:58)
[2020-01-10] MEDS: Azithromycin 500 MG in 0.9 % Sodium Chloride 250 ML IVPB SCH (16:03)
[2020-01-10] MEDS: Acetaminophen 325 MG TABLET PO PRN (20:32)
[2020-01-11] MEDS: Piperacillin/Tazobactam 3.375 GM in 0.9 % Sodium Chloride Mini Bag 100 ML IVPB SCH ×2 (00:09→08:23)
[2020-01-11 01:42] LABS: Hematocrit 36.5 % (35.3-44.9); Hemoglobin 10.7 g/dL (11.5-15.4); Mean Corpuscular HGB Conc 29.3 g/dL (31.6-35.5); Mean Corpuscular Hemoglobin 29.9 pg (28.0-33.3); Platelet Count 241 K/mcL (140-400); Red Blood Count 3.58 M/mcL (3.82-4.97); White Blood Count 21.2 K/mcL (4.3-11.1)
[2020-01-11 02:06] LABS: BUN/Creatinine Ratio 42 (6-26); Blood Urea Nitrogen 28 mg/dL (8-23); Calcium 8.9 mg/dL (8.6-10.3); Carbon Dioxide 36 mEq/L (23-29); Chloride 100 mEq/L (98-107); Glucose 150 mg/dL (70-105); Osmolality,Calculated 296 (280-300); Potassium 4.4 mEq/L (3.5-5.1); Sodium 139 mEq/L (136-145); eGFR For African Americans > 60 (> 60); eGFR For Non-African Americans > 60 (> 60)
[2020-01-11] MEDS: Ipratropium/Albuterol Neb 3 ML IH SCH ×3 (04:02→11:01)
[2020-01-11] MEDS: *HR* HYDROcodone/Acet 5/325 mg TABLET PO PRN (04:21)
[2020-01-11] MEDS: MethylPREDNISolone 40 MG/ML VIAL IVP SCH (05:41)
[2020-01-11] MEDS: *HR* Enoxaparin 40 MG/0.4 ML SYRINGE SQ SCH (05:41)
[2020-01-11 07:06] VITALS: BP 122/83
[2020-01-11 08:12] LABS: VBG HCO3 39 mEq/L (21-27); VBG PCO2 81 mmHg (41-51); VBG PH 7.29 pH Units (7.32-7.42); VBG PO2 141 mmHg (25-50)
[2020-01-11] MEDS: Aspirin Enteric Coated 81 MG Tablet PO SCH (08:21)
[2020-01-11] MEDS: Nicotine 21 MG PATCH.TD24 TD SCH (08:21)
[2020-01-11] MEDS ORDERED: Aminoglycoside Consult 1 EACH MC ONE (12:19)
== END 2020-01-11 12:20 | disposition home or self-care (01) | DRG 871 ==
LOC: 3BNU 13:17 → EMEROOARM 13:17 → 3BNU 17:15 → SUATTDRO 01-09 10:14
PROVIDERS: ADMIT Family Medicine; ATTEND Internal Medicine

== ENCOUNTER 2020-02-20 19:06 | Inpatient (IN) ==
[2020-02-20] MEDS ORDERED: methylPREDNISolone 125 MG/2 ML VIAL IVP ONE (19:15)
[2020-02-20] MEDS ORDERED: Azithromycin 500 MG in 0.9 % Sodium Chloride 250 ML IVPB ONE (19:15)
[2020-02-20] MEDS ORDERED: Ipratropium/Albuterol Neb 3 ML IH ONE (19:15)
[2020-02-20 19:41] LABS: Basophils % 0.2 %; Eosinophils % 0.2 %; Hemoglobin 12.8 g/dL (11.5-15.4); Immature Granulocytes % 0.4 % (0-4); Lymphocytes # 0.5 K/mcL (0.6-4.6); Lymphocytes % 3.9 %; Mean Corpuscular HGB Conc 29.1 g/dL (31.6-35.5); Mean Platelet Volume 10.3 fL (9.4-12.4); Monocytes # 0.1 K/mcL (0.0-1.3); Monocytes % 1.1 %; Platelet Count 176 K/mcL (140-400); Red Blood Count 4.27 M/mcL (3.82-4.97); Red Cell Distribution Width 12.4 % (11.5-14.5); Segmented Neutrophils % 94.2 %; White Blood Count 11.7 K/mcL (4.3-11.1)
[2020-02-20] MEDS ORDERED: cefTRIAXone 1,000 MG in Water for inj. (sterile) 10 ML IVP ONE (19:59)
[2020-02-20 20:04] LABS: BUN/Creatinine Ratio 39 (6-26); Blood Urea Nitrogen 21 mg/dL (8-23); Calcium 9.2 mg/dL (8.6-10.3); Chloride 89 mEq/L (98-107); Glucose 194 mg/dL (70-105); Osmolality,Calculated 296 (280-300); Potassium 4.4 mEq/L (3.5-5.1); Sodium 139 mEq/L (136-145); Troponin I 0.05 ng/mL (< 0.04); eGFR For African Americans > 60 (> 60); eGFR For Non-African Americans > 60 (> 60)
[2020-02-20] MEDS ORDERED: *HR* Heparin 5,000 UNIT/ML VIAL IVP PRN (20:06)
[2020-02-20] MEDS ORDERED: *HR* Heparin 5,000 UNIT/ML VIAL IVP ONE (20:06)
[2020-02-20 20:16] LABS: Hypochromasia Present (Not Present); Microcytosis Present (Not Present); Stomatocytes 2+ (Not Present)
[2020-02-20 20:17] LABS: Platelet Estimate Normal (Normal)
[2020-02-20 20:20] LABS: Heparin anti-factor XA UFH < 0.04 IU/mL (0.30-0.70)
[2020-02-20 20:21] LABS: Prothrombin Time 11.4 Seconds (9.4-12.1)
[2020-02-20 20:40] LABS: Carbon Dioxide 44 mEq/L (23-29)
[2020-02-20] MEDS ORDERED: Acetaminophen 325 MG TABLET PO PRN (20:42)
[2020-02-20] MEDS ORDERED: Naloxone 0.4 MG/ML INJ IVP PRN (20:42)
[2020-02-20] MEDS ORDERED: Ondansetron 4 MG/2 ML VIAL IVP PRN (20:42)
[2020-02-20] MEDS ORDERED: *HR* HYDROcodone/Acet 5/325 mg TABLET PO PRN (20:42)
[2020-02-20] MEDS: Heparin 25,000 UNIT/250 ML D5W 25,000 UNIT/250 ML IV.SOLN IVC SCH (20:42)
[2020-02-20] MEDS ORDERED: Fluticasone Propionate Nasal 50 MCG/SPRAY BOTTLE NS PRN (20:49)
[2020-02-20] MEDS ORDERED: Furosemide 40 MG/4 ML VIAL IVP ONE (23:22)
[2020-02-20] MEDS: Budesonide/Formoterol 160/4.5 1 PUFF INH IH SCH (23:54)
[2020-02-21] MEDS: *HR* OxyCODONE Immed Rel 5 MG TABLET PO PRN ×2 (01:40→08:26)
[2020-02-21] MEDS: MethylPREDNISolone 40 MG/ML VIAL IVP SCH ×2 (01:40→08:18)
[2020-02-21 04:41] LABS: Basophils % 0.1 %; Hematocrit 45.7 % (35.3-44.9); Hemoglobin 13.4 g/dL (11.5-15.4); Immature Granulocytes % 0.5 % (0-4); Lymphocytes # 0.6 K/mcL (0.6-4.6); Lymphocytes % 8.5 %; Mean Corpuscular HGB Conc 29.3 g/dL (31.6-35.5); Mean Corpuscular Hemoglobin 29.9 pg (28.0-33.3); Monocytes # 0.1 K/mcL (0.0-1.3); Monocytes % 0.7 %; Neutrophils # 6.6 K/mcL (1.6-8.9); Platelet Count 189 K/mcL (140-400); Red Blood Count 4.48 M/mcL (3.82-4.97); Red Cell Distribution Width 12.4 % (11.5-14.5); Segmented Neutrophils % 90.2 %; White Blood Count 7.3 K/mcL (4.3-11.1)
[2020-02-21 04:46] LABS: Prothrombin Time 11.7 Seconds (9.4-12.1)
[2020-02-21 05:07] LABS: Alanine Aminotransferase 11 Units/L (7-52); Albumin 4.3 g/dL (3.5-5.7); Albumin/Globulin Ratio 1.4 (1.1-2.2); Alkaline Phosphatase 71 Units/L (34-104); Aspartate Amino Transferase 15 Units/L (13-39); BUN/Creatinine Ratio 25 (6-26); Bilirubin,Total 0.7 mg/dL (0.3-1.0); Blood Urea Nitrogen 15 mg/dL (8-23); Calcium 9.5 mg/dL (8.6-10.3); Carbon Dioxide > 45 mEq/L (23-29); Chloride 88 mEq/L (98-107); Chol/HDL Ratio 3.2 (0-4.9); Cholesterol 302 mg/dL (< 200); Globulin 3.1 g/dL (2.4-3.5); Glucose 180 mg/dL (70-105); HDL Cholesterol 93 mg/dL (40-59); LDL Cholesterol,Calculated 187 mg/dL (0-99); Magnesium 2.2 mg/dL (1.6-2.6); Osmolality,Calculated 299 (280-300); Phosphorous 4.6 mg/dL (2.7-4.5); Potassium 4.3 mEq/L (3.5-5.1); Sodium 142 mEq/L (136-145); Total Protein 7.4 g/dL (6.4-8.9); Triglycerides 108 mg/dL (< 150); eGFR For African Americans > 60 (> 60); eGFR For Non-African Americans > 60 (> 60)
[2020-02-21] MEDS: *HR* Heparin 5,000 UNIT/ML VIAL IVP PRN ×2 (05:50→13:24)
[2020-02-21] MEDS: Tiotropium 18 MCG inhalation IH SCH (07:36)
[2020-02-21] MEDS: Budesonide/Formoterol 160/4.5 1 PUFF INH IH SCH ×2 (07:37→21:53)
[2020-02-21 07:44] LABS: ABG Base Excess 22 mEq/L (-2 to 3); ABG HCO3 53 mEq/L (21-27); ABG Oxygen Saturation 91 % (95-98); ABG PCO2 87 mmHg (35-45); ABG PH 7.39 pH Units (7.32-7.45); ABG PO2 68 mmHg (85-104); ABG TCO2 > 50 mEq/L (20-26)
[2020-02-21] MEDS: Aspirin Enteric Coated 81 MG Tablet PO SCH (08:18)
[2020-02-21] MEDS: cefTRIAXone 1,000 MG in Water for inj. (sterile) 10 ML IVP SCH (08:18)
[2020-02-21] MEDS: Nicotine 14 MG PATCH.TD24 TD SCH (10:22)
[2020-02-21] MEDS: Azithromycin 500 MG in 0.9 % Sodium Chloride 250 ML IVPB SCH (17:37)
[2020-02-21] MEDS ORDERED: Famotidine 20 MG/2 ML VIAL IVP SCH (18:00)
[2020-02-22] MEDS: *HR* OxyCODONE Immed Rel 5 MG TABLET PO PRN (00:37)
[2020-02-22 00:40] LABS: Basophils % 0.2 %; Eosinophils % 0.3 %; Immature Granulocytes % 0.2 % (0-4); Lymphocytes # 2.4 K/mcL (0.6-4.6); Lymphocytes % 18.5 %; Mean Corpuscular HGB Conc 29.7 g/dL (31.6-35.5); Mean Corpuscular Hemoglobin 30.1 pg (28.0-33.3); Mean Corpuscular Volume 101.3 fL (83.0-100.0); Mean Platelet Volume 10.4 fL (9.4-12.4); Monocytes # 1.3 K/mcL (0.0-1.3); Monocytes % 10.3 %; Neutrophils # 9.1 K/mcL (1.6-8.9); Platelet Count 163 K/mcL (140-400); Red Blood Count 3.75 M/mcL (3.82-4.97); Red Cell Distribution Width 12.5 % (11.5-14.5); Segmented Neutrophils % 70.5 %
[2020-02-22 00:41] LABS: Hemoglobin 11.3 g/dL (11.5-15.4); White Blood Count 12.9 K/mcL (4.3-11.1)
[2020-02-22 00:52] LABS: VBG HCO3 46 mEq/L (21-27); VBG PCO2 85 mmHg (41-51); VBG PH 7.34 pH Units (7.32-7.42); VBG PO2 50 mmHg (25-50)
[2020-02-22 01:07] LABS: BUN/Creatinine Ratio 34 (6-26); Blood Urea Nitrogen 22 mg/dL (8-23); Calcium 8.7 mg/dL (8.6-10.3); Carbon Dioxide 45 mEq/L (23-29); Chloride 93 mEq/L (98-107); Glucose 105 mg/dL (70-105); Magnesium 2.3 mg/dL (1.6-2.6); Osmolality,Calculated 298 (280-300); Potassium 3.3 mEq/L (3.5-5.1); Sodium 142 mEq/L (136-145); eGFR For African Americans > 60 (> 60); eGFR For Non-African Americans > 60 (> 60)
[2020-02-22] MEDS: Heparin 25,000 UNIT/250 ML D5W 25,000 UNIT/250 ML IV.SOLN IVC SCH (05:28)
[2020-02-22] MEDS: Nicotine 14 MG PATCH.TD24 TD SCH (08:48)
[2020-02-22] MEDS: Aspirin Enteric Coated 81 MG Tablet PO SCH (08:48)
[2020-02-22] MEDS: cefTRIAXone 1,000 MG in Water for inj. (sterile) 10 ML IVP SCH (08:49)
[2020-02-22] MEDS: *HR* Heparin 5,000 UNIT/ML VIAL IVP PRN ×2 (08:57→16:49)
[2020-02-22] MEDS: Budesonide/Formoterol 160/4.5 1 PUFF INH IH SCH ×2 (10:38→19:52)
[2020-02-22] MEDS: Tiotropium 18 MCG inhalation IH SCH (10:39)
[2020-02-22] MEDS: Azithromycin 500 MG in 0.9 % Sodium Chloride 250 ML IVPB SCH (17:52)
[2020-02-23] MEDS: *HR* Heparin 5,000 UNIT/ML VIAL IVP PRN (00:38)
[2020-02-23] MEDS: *HR* OxyCODONE Immed Rel 5 MG TABLET PO PRN (00:46)
[2020-02-23 02:33] LABS: Hemoglobin 10.8 g/dL (11.5-15.4)
[2020-02-23 02:34] LABS: Basophils # 0.1 K/mcL (0.0-0.2); Basophils % 0.5 %; Eosinophils % 3.3 %; Hematocrit 36.6 % (35.3-44.9); Immature Granulocytes % 0.2 % (0-4); Lymphocytes # 2.6 K/mcL (0.6-4.6); Lymphocytes % 24.8 %; Mean Corpuscular HGB Conc 29.5 g/dL (31.6-35.5); Mean Corpuscular Hemoglobin 30.4 pg (28.0-33.3); Mean Corpuscular Volume 103.1 fL (83.0-100.0); Mean Platelet Volume 10.5 fL (9.4-12.4); Monocytes # 1.1 K/mcL (0.0-1.3); Monocytes % 10.3 %; Neutrophils # 6.4 K/mcL (1.6-8.9); Platelet Count 160 K/mcL (140-400); Red Blood Count 3.55 M/mcL (3.82-4.97); Red Cell Distribution Width 12.7 % (11.5-14.5); Segmented Neutrophils % 60.9 %; White Blood Count 10.5 K/mcL (4.3-11.1)
[2020-02-23 02:39] LABS: VBG HCO3 46 mEq/L (21-27); VBG PCO2 80 mmHg (41-51); VBG PH 7.37 pH Units (7.32-7.42); VBG PO2 139 mmHg (25-50)
[2020-02-23 02:41] LABS: Eosinophils # 0.4 K/mcL (0.0-0.6)
[2020-02-23 03:01] LABS: BUN/Creatinine Ratio 28 (6-26); Blood Urea Nitrogen 25 mg/dL (8-23); Calcium 8.7 mg/dL (8.6-10.3); Carbon Dioxide 45 mEq/L (23-29); Chloride 97 mEq/L (98-107); Glucose 102 mg/dL (70-105); Magnesium 2.3 mg/dL (1.6-2.6); Osmolality,Calculated 299 (280-300); Potassium 4.8 mEq/L (3.5-5.1); Sodium 142 mEq/L (136-145); eGFR For African Americans > 60 (> 60); eGFR For Non-African Americans > 60 (> 60)
[2020-02-23 03:15] LABS: Platelet Estimate Normal (Normal)
[2020-02-23 03:16] LABS: Anisocytosis 1+ (Not Present); Hypochromasia Present (Not Present); Stomatocytes 1+ (Not Present)
[2020-02-23 06:24] VITALS: BP 104/60
[2020-02-23] MEDS: Budesonide/Formoterol 160/4.5 1 PUFF INH IH SCH (07:32)
[2020-02-23] MEDS: Aspirin Enteric Coated 81 MG Tablet PO SCH (08:09)
[2020-02-23] MEDS: Nicotine 14 MG PATCH.TD24 TD SCH (08:09)
[2020-02-23] MEDS ORDERED: predniSONE 20 MG TABLET PO SCH (09:00)
[2020-02-23] MEDS ORDERED: Furosemide 40 MG/4 ML VIAL IVP SCH (09:00)
[2020-02-23] MEDS: Tiotropium 18 MCG inhalation IH SCH (11:41)
[2020-02-23] MEDS ORDERED: *HR* Heparin 5,000 UNIT/ML VIAL SQ SCH (14:00)
[2020-02-23] MEDS ORDERED: lisinopriL 5 MG TABLET PO SCH (21:00)
[2020-02-24] MEDS ORDERED: Metoprolol XL (24 HR) Succ 25 MG TAB.ER.24H PO SCH (09:00)
[2020-02-24] MEDS ORDERED: acetaZOLAMIDE 250 MG TABLET PO SCH (09:00)
== END 2020-02-23 14:09 | disposition home or self-care (01) | DRG 280 ==
LOC: EMEROOARM 19:06 → 3BNU 19:06 → 2NENU 19:06 → OBSVTOIN 21:06 → SUATTDRO 21:06 → 2NENU 22:02 → 2ANU 02-21 21:17
PROVIDERS: ADMIT Internal Medicine; ATTEND Pharmacist

== ENCOUNTER 2020-03-29 20:44 | Observation (INO) ==
[2020-03-29] MEDS ORDERED: Aspirin 81 MG TAB.CHEW PO ONE (20:50)
[2020-03-29 21:08] LABS: White Blood Count 9.6 K/mcL (4.3-11.1)
[2020-03-29 21:09] LABS: Basophils % 0.3 %; Eosinophils % 0.3 %; Hemoglobin 13.7 g/dL (11.5-15.4); Immature Granulocytes % 0.2 % (0-4); Lymphocytes # 1.5 K/mcL (0.6-4.6); Lymphocytes % 15.4 %; Mean Corpuscular HGB Conc 28.5 g/dL (31.6-35.5); Mean Corpuscular Hemoglobin 30.9 pg (28.0-33.3); Mean Corpuscular Volume 108.1 fL (83.0-100.0); Mean Platelet Volume 9.7 fL (9.4-12.4); Monocytes # 0.7 K/mcL (0.0-1.3); Monocytes % 7.1 %; Neutrophils # 7.4 K/mcL (1.6-8.9); Platelet Count 231 K/mcL (140-400); Red Blood Count 4.44 M/mcL (3.82-4.97); Red Cell Distribution Width 12.3 % (11.5-14.5); Segmented Neutrophils % 76.7 %
[2020-03-29 21:15] LABS: Prothrombin Time 10.8 Seconds (9.4-12.1)
[2020-03-29 21:17] LABS: Activated Partial Thrombo Time 35.1 Seconds (26.0-36.0)
[2020-03-29 21:36] LABS: Alanine Aminotransferase 13 Units/L (7-52); Albumin 4.6 g/dL (3.5-5.7); Albumin/Globulin Ratio 1.6 (1.1-2.2); Alkaline Phosphatase 73 Units/L (34-104); Aspartate Amino Transferase 14 Units/L (13-39); BUN/Creatinine Ratio 31 (6-26); Bilirubin,Direct 0.1 mg/dL (0.0-0.2); Bilirubin,Indirect 0.5 mg/dL (0.0-1.0); Bilirubin,Total 0.6 mg/dL (0.3-1.0); Blood Urea Nitrogen 17 mg/dL (8-23); Calcium 9.7 mg/dL (8.6-10.3); Carbon Dioxide > 45 mEq/L (23-29); Chloride 91 mEq/L (98-107); Globulin 2.9 g/dL (2.4-3.5); Glucose 147 mg/dL (70-105); Lipase 51 Units/L (11-82); Osmolality,Calculated 300 (280-300); Potassium 4.5 mEq/L (3.5-5.1); Sodium 143 mEq/L (136-145); Total Protein 7.5 g/dL (6.4-8.9); Troponin I 0.07 ng/mL (< 0.04); eGFR For African Americans > 60 (> 60); eGFR For Non-African Americans > 60 (> 60)
[2020-03-29 21:46] LABS: Stomatocytes 1+ (Not Present)
[2020-03-29] MEDS ORDERED: *HR* OxyCODONE/APAP 5/325 TABLET PO ONE (22:05)
[2020-03-29] MEDS ORDERED: Nitroglycerin 0.4 MG TAB.SUBL SL ONE (22:06)
[2020-03-29] MEDS ORDERED: Furosemide 40 MG/4 ML VIAL IVP ONE (23:44)
[2020-03-29] MEDS ORDERED: Heparin 25,000 UNIT/250 ML D5W 25,000 UNIT/250 ML IV.SOLN IVC SCH (23:45)
[2020-03-29] MEDS ORDERED: *HR* Heparin 5,000 UNIT/ML VIAL IVP PRN ×2 (23:46)
[2020-03-29] MEDS ORDERED: *HR* Heparin 5,000 UNIT/ML VIAL IVP ONE (23:46)
[2020-03-30 01:04] LABS: INR 1.1; Prothrombin Time 12.2 Seconds (9.4-12.1)
[2020-03-30 01:10] LABS: Heparin anti-factor XA UFH 1.04 IU/mL (0.30-0.70)
[2020-03-30] MEDS ORDERED: Naloxone 0.4 MG/ML INJ IVP PRN (01:48)
[2020-03-30] MEDS: Ipratropium/Albuterol Neb 3 ML IH SCH ×6 (02:10→21:04)
[2020-03-30 02:36] LABS: Hematocrit 44.3 % (35.3-44.9); Hemoglobin 12.5 g/dL (11.5-15.4); Mean Corpuscular HGB Conc 28.2 g/dL (31.6-35.5); Mean Corpuscular Volume 106.2 fL (83.0-100.0); Mean Platelet Volume 10.1 fL (9.4-12.4); Platelet Count 262 K/mcL (140-400); Red Blood Count 4.17 M/mcL (3.82-4.97); Red Cell Distribution Width 12.4 % (11.5-14.5)
[2020-03-30 03:01] LABS: BUN/Creatinine Ratio 38 (6-26); Blood Urea Nitrogen 19 mg/dL (8-23); Calcium 9.5 mg/dL (8.6-10.3); Carbon Dioxide > 45 mEq/L (23-29); Chloride 90 mEq/L (98-107); Glucose 102 mg/dL (70-105); Osmolality,Calculated 296 (280-300); Potassium 4.3 mEq/L (3.5-5.1); Sodium 142 mEq/L (136-145); eGFR For African Americans > 60 (> 60); eGFR For Non-African Americans > 60 (> 60)
[2020-03-30] MEDS: *HR* HYDROcodone/Acet 5/325 mg TABLET PO PRN (12:56)
[2020-03-30] MEDS ORDERED: Fluticasone Propionate Nasal 50 MCG/SPRAY BOTTLE NS PRN (16:37)
[2020-03-30] MEDS ORDERED: Acetaminophen IV 500 MG/50 ML INFUS..BTL IVPB ONE (16:39)
[2020-03-30] MEDS: Budesonide/Formoterol 160/4.5 1 PUFF INH IH SCH (21:03)
[2020-03-30] MEDS: *HR* Heparin 5,000 UNIT/ML VIAL SQ SCH (21:13)
[2020-03-31] MEDS: *HR* HYDROcodone/Acet 5/325 mg TABLET PO PRN ×2 (01:05→07:27)
[2020-03-31 01:18] LABS: Hemoglobin 12.3 g/dL (11.5-15.4); Red Cell Distribution Width 12.4 % (11.5-14.5)
[2020-03-31 01:19] LABS: Basophils % 0.5 %; Eosinophils # 0.2 K/mcL (0.0-0.6); Eosinophils % 2.4 %; Hematocrit 41.8 % (35.3-44.9); Immature Granulocytes % 0.1 % (0-4); Lymphocytes # 1.6 K/mcL (0.6-4.6); Lymphocytes % 20.8 %; Mean Corpuscular HGB Conc 29.4 g/dL (31.6-35.5); Mean Corpuscular Hemoglobin 30.8 pg (28.0-33.3); Mean Corpuscular Volume 104.5 fL (83.0-100.0); Mean Platelet Volume 10.2 fL (9.4-12.4); Monocytes # 0.5 K/mcL (0.0-1.3); Monocytes % 6.2 %; Neutrophils # 5.3 K/mcL (1.6-8.9); Platelet Count 222 K/mcL (140-400); White Blood Count 7.6 K/mcL (4.3-11.1)
[2020-03-31 01:46] LABS: BUN/Creatinine Ratio 38 (6-26); Blood Urea Nitrogen 23 mg/dL (8-23); Carbon Dioxide > 45 mEq/L (23-29); Chloride 90 mEq/L (98-107); Glucose 173 mg/dL (70-105); Osmolality,Calculated 302 (280-300); Potassium 3.6 mEq/L (3.5-5.1); Sodium 142 mEq/L (136-145); eGFR For African Americans > 60 (> 60); eGFR For Non-African Americans > 60 (> 60)
[2020-03-31 02:12] LABS: Hypochromasia Present (Not Present); Platelet Estimate Normal (Normal); Stomatocytes 1+ (Not Present)
[2020-03-31] MEDS: Ipratropium/Albuterol Neb 3 ML IH SCH ×2 (03:32→09:40)
[2020-03-31] MEDS: *HR* Heparin 5,000 UNIT/ML VIAL SQ SCH (05:17)
[2020-03-31 07:04] VITALS: BP 109/63
[2020-03-31] MEDS ORDERED: Metoprolol XL (24 HR) Succ 25 MG TAB.ER.24H PO SCH (09:00)
[2020-03-31] MEDS ORDERED: Furosemide 20 MG TABLET PO SCH (09:00)
[2020-03-31] MEDS ORDERED: lisinopriL 5 MG TABLET PO SCH (09:00)
[2020-03-31] MEDS ORDERED: Aspirin Enteric Coated 81 MG Tablet PO SCH (09:00)
[2020-03-31] MEDS: Budesonide/Formoterol 160/4.5 1 PUFF INH IH SCH (09:40)
[2020-03-31] MEDS ORDERED: Tiotropium 18 MCG inhalation IH SCH (10:00)
== END 2020-03-31 12:08 | disposition home health service (06) ==
LOC: 3BNU 20:44 → EMEROOARM 20:44 → 3BNU 03-30 00:15
PROVIDERS: ADMIT Student in an Organized Health Care Education/Training Program; ATTEND Student in an Organized Health Care Education/Training Program